=== PATIENT | female | born 1945 | race Caucasian/White ===

== ENCOUNTER 2017-08-05 13:06 | Outpatient (CLI) | payer MEDICARE, OTHER ==
--- NOTE | 2017-08-05 15:43 | MRI ---
MRI OF CERVICAL SPINE PERFORMED WITHOUT CONTRAST ENHANCEMENT: 08/05/17 HISTORY: Neck and arm pain. Image quality is degraded by fairly pronounced motion artifact. Vertebral bodies maintain normal height. There is disc narrowing at C5-6 and C6-7. C2-3: Unremarkable. C3-4: Some mild disc bulge. There are fact hypertrophic changes and some borderline bilateral foramin al narrowing. C4-5: No significant canal stenosis or any definite foraminal narrowing. C5-6: There is posterior osteophytic bar at this level with disc changes. This is associated with a m oderate degree of canal narrowing and bilateral foraminal stenosis which is moderate. C6-7: Similar changes are seen at this level with posterior osteophytic broad based bar causing a mod erate degree of canal stenosis. There is also mild to moderate bilateral foraminal narrowing. The moses nges are slightly less pronounced than the C5-6 level. C7-T1: Unremarkable. IMPRESSION: Moderate canal stenosis at the C5-6 and C6-7 levels. Associated foraminal narrowing is seen. POS: [facility]
--- NOTE | 2017-08-05 15:47 | MRI ---
MRI OF LUMBAR SPINE PERFORMED WITHOUT CONTRAST ENHANCEMENT: History: Back pain. Leg pain. FINDINGS: Vertebral bodies are normal in height. Generalized disc desiccation changes are seen. Vertebral body hemangioma of T11 is present. Areas of T2 hyperintensity involving the kidneys are most likely cysts. There is no significant periaortic adenopathy. T12-L1: No significant canal or foraminal stenosis. L1-2: Facet hypertrophic changes without significant canal or foraminal stenosis. L2-3: There is a disc bulge and central minimal protrusion which in conjunction with facet and ligame ntous hypertrophic changes cause a moderate degree of canal stenosis. There is mild foraminal narrowi ng. L3-4: Once again there is a fairly prominent disc bulge with central to slightly ------ central disc protrusion. There is a severe degree of canal narrowing with facet and ligamentous hypertrophic perez es. No significant foraminal narrowing. L4-5: Disc bulge as well as facet and ligamentous hypertrophic change contribute to a mild degree of canal stenosis. There is a some mild bilateral foraminal narrowing also present. L5-S1: No significant canal or foraminal narrowing at this level. IMPRESSION: Disc changes and facet and ligamentous hypertrophic changes at the L2-3 and L3-4 levels associated wi th marked stenosis as discussed above. Other findings also as noted above. POS: [facility]
== END 2017-08-05 13:07 | disposition home or self-care (01) ==
LOC: TBSIIMAG 13:06
PROVIDERS: ATTEND Neurological Surgery
DX: M54.2 Cervicalgia (principal); M48.062 Spinal stenosis, lumbar region with neurogenic claudication; M48.02 Spinal stenosis, cervical region
CPT/HCPCS: 72141; 72148

== ENCOUNTER 2017-08-24 06:59 | Day surgery (SDC) | payer MEDICARE, OTHER ==
[2017-08-21 14:30] VITALS: BMI 35.3
[2017-08-24 08:08] LABS: #Eosinphils 0.2 thou/uL (0.0-0.7); #Lymphocytes 1.3 thou/uL (1.20-3.40); #Monocytes 0.5 thou/uL (0.11-0.59); #Neutrophils 7.5 thou/uL (1.40-6.50); %Basophils 0.4 % (0.0-1.0); %Eosinophils 1.7 % (0.0-10.0); %Lymphocytes 13.9 % (21.0-51.0); %Monocytes 5.4 % (0.0-10.0); %Neutrophils 78.5 % (42.0-75.0); Hemoglobin 13.2 g/dL (12.0-16.0); Mean Corpuscular Hemoglobin 29.4 pg (27.0-31.0); Mean Corpuscular Volume 89.1 fl (81.0-99.0); Mean Platelet Volume 6.6 fL (7.4-10.4); Platelet Count 376 thou/uL (130-400); RBC Distribution Width 11.8 % (11.5-14.5); Red Blood Cell (RBC) Count 4.49 mill/uL (4.20-5.40); White Blood Cell (WBC) Count 9.6 thou/uL (4.8-10.8)
[2017-08-24] MEDS ORDERED: Levofloxacin 500 mg/D5W 100 ml Premix Bag ONE (08:13)
[2017-08-24] MEDS ORDERED: Clindamycin/D5W 900 mg/50 ml Premix Bag ONE (08:13)
[2017-08-24 08:34] LABS: Anion Gap 11 mmol/L (10-20); BUN (Urea Nitrogen) 14 mg/dL (9.8-20.1); Calc. Creatinine Clearance 105 mL/min (70-130); Calcium 9.8 mg/dL (7.8-10.44); Carbon Dioxide 29 mmol/L (23-31); Chloride 98 mmol/L (98-107); Estimated GFR-MDRD Greater than 90; Glucose 130 mg/dL (83-110); Potassium 3.9 mmol/L (3.5-5.1); Sodium 134 mmol/L (136-145)
[2017-08-24] MEDS ORDERED: Sodium Chloride 0.9% 10 ML ONE (13:18)
[2017-08-24] MEDS ORDERED: Fentanyl 100 MCG/2 ML VIAL ONE (13:44)
[2017-08-24] MEDS ORDERED: HYDROmorphone 0.5 MG/0.5 ML SYRINGE ONE ×2 (15:08→15:10)
[2017-08-24] MEDS ORDERED: Ondansetron HCl/PF 4 MG/2 ML Vial IVP PRN (15:17)
[2017-08-24] MEDS ORDERED: HYDROmorphone 2 MG/ML VIAL SLOW IVP PRN (15:17)
[2017-08-24] MEDS ORDERED: Promethazine HCl 25 MG/ML VIAL SLOW IVP PRN (15:17)
[2017-08-24] MEDS ORDERED: Promethazine HCl 25 MG/ML VIAL IM PRN ×2 (15:17→17:59)
[2017-08-24] MEDS ORDERED: Promethazine HCl 25 MG/ML VIAL ONE (15:19)
[2017-08-24] MEDS ORDERED: Fentanyl 250 MCG/5 ML VIAL ONE (15:20)
[2017-08-24] MEDS ORDERED: Sodium Chloride For Inhalation 0.9% 3 ML NEB ONE (15:43)
[2017-08-24] MEDS ORDERED: Albuterol Sulfate 1.25 MG/3 ML NEB ONE (15:44)
--- NOTE | 2017-08-24 16:05 | OP ---
DATE OF PROCEDURE: 08/24/2017 SURGEON: Felipe Aguilar M.D. BACK TENDER CYLINDER: Perez Mcneil PA-C PROCEDURES: Anterior cervical discectomy C5-C6 and C6-C7, interbody arthrodesis, intravertebral biom echanical device, local morselized autograft, demineralized bone matrix, anterior titanium instrument ation C5-C7. PROCEDURE IN DETAIL: The patient was brought to the operating room, intubated. He was positioned rivera pine in modest extension on a gel-filled donut. Incision was made in the right precervical area and dissecting medial to the sternocleidomastoid muscle, identified the anterior cervical spine and our l evel was confirmed by x-ray. We debrided anterior osteophytes, placed distraction from C5-C7 and usi ng the operating microscope and microdissection techniques, completely decompressed the intravertebra l disc exposing the dura from foramen to foramen. After complete decompression had been secured, the bony endplates were decorticated for purpose of arthrodesis and appropriately sized intravertebral b iomechanical PEEK device was brought into the field, filled with demineralized bone matrix, local mor selized autograft, and tapped into place securely at C5-C6 and C6-C7. Next, an anterior plate was br ought in the field and secured to C5, C6 and C7 using two 14 mm screws at each level. The wound was then extensively irrigated, immaculate hemostasis was secured. The wound was closed in anatomic laye rs over a drain.
[2017-08-24] MEDS ORDERED: Esmolol 100 MG/10 ML VIAL ONE (17:17)
[2017-08-24] MEDS ORDERED: Propofol 200 MG/20 ML VIAL ONE (17:17)
[2017-08-24] MEDS ORDERED: PHENYLEPHRINE-NS 100 MCG/ML 10 ML SYRINGE ONE (17:17)
[2017-08-24] MEDS ORDERED: Ondansetron HCl/PF 4 MG/2 ML Vial ONE (17:17)
[2017-08-24] MEDS ORDERED: ePHEDrine/0.9% NaCl/PF SYRINGE 50 mg/10 ml ONE (17:17)
[2017-08-24] MEDS ORDERED: Lidocaine 1% PF 5 ML VIAL ONE (17:17)
[2017-08-24] MEDS ORDERED: Morphine 4 MG/ML Carpuject SLOW IVP PRN (17:59)
[2017-08-24] MEDS ORDERED: tiZANidine HCl 4 MG TAB PO PRN (17:59)
[2017-08-24] MEDS ORDERED: Acetaminophen 650 MG Suppository PR PRN (17:59)
[2017-08-24] MEDS ORDERED: diphenhydrAMINE 25 MG CAP PO PRN (17:59)
[2017-08-24] MEDS ORDERED: Mag-Al 1200 mg/1200 mg/30 ML UDCUP PO PRN (17:59)
[2017-08-24] MEDS ORDERED: Acetaminophen 325 MG TAB PO PRN (17:59)
[2017-08-24] MEDS ORDERED: HYDROcodone/Acetaminophen 7.5/325 mg Tablet PO PRN ×2 (17:59)
[2017-08-24] MEDS ORDERED: Promethazine 25 MG TAB PO PRN (17:59)
[2017-08-24] MEDS ORDERED: diphenhydrAMINE 50 MG/ML VIAL IVP PRN (17:59)
[2017-08-24] MEDS ORDERED: Promethazine HCl 12.5 MG SUPP PR PRN (17:59)
[2017-08-24] MEDS ORDERED: Milk Of Magnesia 30 ML UDCUP PO PRN (17:59)
[2017-08-24] MEDS: Ondansetron HCl/PF 4 MG/2 ML Vial IVP PRN (18:59)
[2017-08-24] MEDS: Sodium Chloride 0.9% 1,000 ML IV SCH (20:30)
[2017-08-25] MEDS ORDERED: Levothyroxine Sodium 25 MCG TAB PO SCH (06:00)
[2017-08-25] MEDS: Ondansetron HCl/PF 4 MG/2 ML Vial IVP PRN (06:09)
[2017-08-25] MEDS ORDERED: metFORMIN 500 MG TAB PO SCH (08:00)
[2017-08-25 08:23] VITALS: BP 163/89; TEMP 98
[2017-08-25] MEDS: Sodium Chloride 0.9% 1,000 ML IV SCH (08:27)
[2017-08-25] MEDS ORDERED: Amlodipine 5 MG TAB PO SCH (09:00)
[2017-08-25] MEDS ORDERED: Potassium Citrate 10 MEQ TAB PO SCH (17:00)
[2017-08-25] MEDS ORDERED: Hydrochlorothiazide 25 MG TAB PO SCH (21:00)
[2017-08-25] MEDS ORDERED: Atorvastatin Calcium 40 MG TAB PO SCH (21:00)
--- NOTE | 2017-08-27 06:20 | HP ---
DATE OF H&P: 08/24/2017 HISTORY OF PRESENT ILLNESS: The patient is a 72-year-old female with past medical history of hypertension, hyperlipidemia, diabetes, hypothyroidism, who presented to the office for low back and neck pain. She has started aching sensation along the neck and lumbar spine. Her symptoms were increased with walking or standing. She denied any weakness, numbness, tingling, bowel or bladder issues. We updated her MRI which was notable for significant degenerative changes at C5-6 and C6-7. Therefore, C5-C6, C6-C7 ACDF was recommended by Dr. Aguilar. REVIEW OF SYSTEMS: Per HPI. PAST MEDICAL HISTORY: Diabetes, arthritis, hypertension, hypothyroidism. PAST SURGICAL HISTORY: Hysterectomy, bilateral knee replacement. FAMILY HISTORY: Noncontributory. SOCIAL HISTORY: The patient does not smoke, drink or use any drugs. PHYSICAL EXAMINATION: GENERAL: Sitting in the chair comfortably in no acute distress. HEENT: Normocephalic, atraumatic. ENT: OP clear. Normal voice. NECK: Nontender to palpation. Free active range of motion. CARDIOVASCULAR: Regular rate and rhythm. RESPIRATORY: The patient is breathing comfortably with symmetric chest expansion. MUSCULOSKELETAL: Good muscle tone in bilateral upper and lower extremities. NEUROLOGIC: No focal weakness. A and O x4. ASSESSMENT AND PLAN: C5-C6, C6-C7 anterior cervical discectomy and fusion. Dr. Aguilar has discussed risks, benefits, and alternatives. Patient understands and wishes to proceed. [facility] MED[facility] CENTERAlicia
--- NOTE | 2017-08-27 17:27 | EKG ---
Test Reason : PREOP Blood Pressure : / mmHG Vent. Rate : 068 BPM Atrial Rate : 068 BPM P-R Int : 206 ms QRS Dur : 102 ms QT Int : 400 ms P-R-T Axes : 004 031 048 degrees QTc Int : 425 ms Normal sinus rhythm Low voltage QRS Cannot rule out Anterior infarct (cited on or before 04-AUG-2006) Abnormal ECG When compared with ECG of 29-SEP-2006 09:35, No significant change was found Confirmed by DR. Uriel QUACH ([id number]) on 08/27/2017 5:27:10 PM Referred By: AAMIR Confirmed By:DR. Uriel QUACH
--- NOTE | 2017-08-28 08:48 | PRG ---
DATE OF SERVICE: 08/28/2017 Ms. Leon when I went by the first time was getting up and went to the bathroom. When she got back in bed she said she was having recurrent pain in the upper back. The patient's daughter says that Ms Hudson Babin had a lot of pain in the upper back last night and also burning. The patient's daughter tells me that she thinks that the pain got worse when she tried to take the st ool softener. The patient has no anterior chest pain. The blood pressure earlier was 132/96, but it was very high after she had some vomiting and retching. It was up to 200/95. Her pulse is 70, it is in sinus rhythm now, but she did have a brief episode of atrial fibrillation e arlier. The rate was controlled at that point. NECK: Neck veins are normal. LUNGS: The lungs are clear. CARDIAC: Normal S1, normal S2. ABDOMEN: Obese, nontender. EXTREMITIES: Warm, dry, no clubbing, cyanosis or edema. ASSESSMENT: 1. Postoperative status with continued pain, upper back. 2. Cardiac enzymes have been negative. 3. Diastolic heart failure, appears resolved. The patient is breathing comfortably now. 4. Symptoms to suggest esophageal reflux. 5. Hypertension was relatively well controlled until she started having the vomiting and retching. PLAN: 1. She is on carvedilol. 2. She is on losartan. 3. We will reduce diuretics to once a day. 4. Cannot use antiplatelet drugs in this patient with recent cervical spine surgery. 5. We will do a portable chest x-ray. 6. Neurosurgery saw the patient yesterday and we will ask them to see her again today to see if othe r imaging would be appropriate. I had a prolonged discussion today with the patient and the daughter in the room. Questions were ans wered. At this point, no other cardiac intervention is indicated. Invasive Cardiology would not be helpful at this point as cannot receive antiplatelet drugs and also the patient has not shown any moses nge in the troponin levels which have all been normal and no ischemic changes with her symptoms. The echocardiogram showed normal left ventricular systolic function and wall motion with some diastolic dysfunction. BNP did show some elevation initially compatible with diastolic heart failure. The patient is being monitored closely.
== END 2017-08-25 09:15 | disposition home or self-care (01) ==
LOC: SDC 06:59 → SURG A 16:45 → SDC 08-25 09:15
PROVIDERS: ATTEND Neurological Surgery
PROC: 0RG20A0 Fusion of 2 or more Cervical Vertebral Joints with Interbody Fusion Device, Anterior Approach, Anterior Column, Open Approach (ICD-10-PCS; principal; 2017-08-24)
DX: M54.12 Radiculopathy, cervical region (principal); M48.062 Spinal stenosis, lumbar region with neurogenic claudication; M47.16 Other spondylosis with myelopathy, lumbar region; I10 Essential (primary) hypertension; E11.9 Type 2 diabetes mellitus without complications; E03.9 Hypothyroidism, unspecified; E78.5 Hyperlipidemia, unspecified; M19.90 Unspecified osteoarthritis, unspecified site; Z88.0 Allergy status to penicillin; Z91.012 Allergy to eggs; Z87.891 Personal history of nicotine dependence
CPT/HCPCS: 20930; 20936; 22551; 22552; 22853 ×2; 76000; 80048; 85025; 93005; 96374; C1713 ×2; C1776; 36415; 93010; A4216; J1170; J1956; J2001; J2270; J2405; J2550; J2704; J3010; J3490; J7620

== ENCOUNTER 2017-08-26 06:13 | Inpatient (IN) | payer MEDICARE, OTHER ==
[2017-08-26] MEDS ORDERED: Dexamethasone 10 MG/ML VIAL ONE (06:46)
--- NOTE | 2017-08-26 08:11 | RAD ---
CERVICAL SPINE SERIES: History: Cervical pain status post-surgery on 08-24-17. FINDINGS: Patient has undergone an anterior cervical fusion extending from C5 to C7 with intervening disc impla nts. There is moderate soft tissue swelling anterior to this level and as high as the C2 vertebral adryan dy. This could be entirely post op related to the recent surgery. No malalignment of the fusion. IMPRESSION: Recent post-operative changes related to an anterior cervical fusion extending from C5 to C7. There i s moderate prevertebral soft tissue swelling which can be seen after surgery. This is slightly more p rominent than typically seen. It measures 2.4 cm at the level of the C5-6 and 1.5 cm in thickness at C2. POS: C
--- NOTE | 2017-08-26 08:59 | RAD ---
TWO VIEW CHEST: History: Shortness of breath. Post cervical spine surgery. Cough. FINDINGS: Heart is enlarged. There is mild vascular engorgement. No confluent infiltrate. I cannot exclude tiny effusions as both posterior gutters are slightly blunted. IMPRESSION: Cardiomegaly with mild vascular engorgement. No focal infiltrate. There may be tiny effusions present . POS: [facility]
[2017-08-26 09:33] LABS: #Eosinphils 0.1 thou/uL (0.0-0.7); #Lymphocytes 0.9 thou/uL (1.20-3.40); #Monocytes 0.8 thou/uL (0.11-0.59); #Neutrophils 12.7 thou/uL (1.40-6.50); %Eosinophils 0.3 % (0.0-10.0); %Lymphocytes 6.2 % (21.0-51.0); %Monocytes 5.7 % (0.0-10.0); %Neutrophils 87.8 % (42.0-75.0); Hemoglobin 12.3 g/dL (12.0-16.0); Mean Corpuscular HGB CONC 32.4 g/dL (32.0-36.0); Mean Corpuscular Volume 89.6 fl (81.0-99.0); Mean Platelet Volume 6.8 fL (7.4-10.4); Platelet Count 353 thou/uL (130-400); RBC Distribution Width 11.9 % (11.5-14.5); Red Blood Cell (RBC) Count 4.23 mill/uL (4.20-5.40); White Blood Cell (WBC) Count 14.5 thou/uL (4.8-10.8)
[2017-08-26 09:40] LABS: ALT (SGPT) 12 U/L (8-55); AST (SGOT) 12 U/L (5-34); Albumin 3.8 g/dL (3.4-4.8); Alkaline Phosphatase 84 U/L (40-150); Anion Gap 11 mmol/L (10-20); BUN (Urea Nitrogen) 12 mg/dL (9.8-20.1); Bilirubin, Total 0.5 mg/dL (0.2-1.2); Calc. Creatinine Clearance 0 mL/min (70-130); Calcium 9.7 mg/dL (7.8-10.44); Carbon Dioxide 30 mmol/L (23-31); Chloride 90 mmol/L (98-107); Estimated GFR-MDRD 89; Glucose 136 mg/dL (83-110); Potassium 3.5 mmol/L (3.5-5.1); Protein, Total 6.8 g/dL (6.0-8.3); Sodium 127 mmol/L (136-145)
[2017-08-26 09:45] LABS: CKMB 1.5 ng/mL (0-6.6); Troponin I Less than 0.010 ng/mL (< 0.028)
[2017-08-26] MEDS ORDERED: Nitroglycerin 2% Ointment 1 INCH/1 GM Packet ONE ×2 (10:32→11:12)
[2017-08-26] MEDS ORDERED: Ondansetron ODT 4 MG TAB PO PRN ×2 (11:24→14:04)
[2017-08-26] MEDS ORDERED: Milk Of Magnesia 30 ML UDCUP PO PRN (11:24)
[2017-08-26] MEDS ORDERED: Acetaminophen 325 MG TAB PO PRN (11:24)
[2017-08-26] MEDS ORDERED: Guaifenesin DM 100-10/5 ML UDCUP PO PRN (11:24)
[2017-08-26 13:07] VITALS: BMI 38.1
[2017-08-26 13:24] LABS: Troponin I Less than 0.010 ng/mL (< 0.028)
[2017-08-26] MEDS ORDERED: ONDANSETRON HCL PO PRN (13:32)
[2017-08-26] MEDS ORDERED: tiZANidine HCl 4 MG TAB PO PRN (13:32)
--- NOTE | 2017-08-26 14:11 | HP ---
PRIMARY CARE PHYSICIAN: Dr. Eusebio Atwood CHIEF COMPLAINT: Shortness of breath. HISTORY OF PRESENT ILLNESS: This is a 72-year-old female, Ms. Evie Leon, who presents to the emergency room with acute shortness of breath. She reports that her symptoms started around 3:00 a.m., she felt she could not catch her breath and felt like choking. She felt she was unable to get any air in. It was associated with nausea. She had 3 episodes of vomiting. She denies chest pain, palpitations, edema, fever, or chills. She had no other abdominal or urinary symptoms. Of note, she had surgery 2 days ago (anterior cervical fusion ) and reports getting about 1.5-2 liters of IV fluid. She has a remote history of CHF diagnosed about 35 years ago when she developed some edema. In the emergency room, she was found to be saturating at 88% on room air. Her labs were largely unremarkable apart from a BNP of 273.8. Troponin was obtained and trended and remained negative. Chest x-ray showed mild vascular congestion. Cervical spine x-ray showed no acute abnormalities, just residual postsurgical changes. She was then admitted for acute hypoxic respiratory failure likely secondary to acute congestive heart failure. PAST MEDICAL HISTORY: Hypertension, type 2 diabetes mellitus, hyperlipidemia, hypothyroidism, remote CHF history. PAST SURGICAL HISTORY: Anterior cervical fusion, appendectomy, hysterectomy, 2 knee replacements. FAMILY HISTORY: Her father and 3 brothers from [place]. Other family history is noncontributory. SOCIAL HISTORY: Does not drink alcohol, smoke cigarettes or use illicit drugs. ALLERGIES: EGGS, PENICILLIN. CODE STATUS: Full code. LABORATORY: As stated in HPI. IMAGING: Imaging as stated in HPI. REVIEW OF SYSTEMS: Twelve point review of systems conducted and negative except as stated in HPI. PHYSICAL EXAMINATION: GENERAL: Not in acute distress, lying comfortably in bed. Oxygen being delivered by nasal cannula. HEENT: Normocephalic, atraumatic. Not pale, anicteric. Moist mucosa. NECK: Supple. No JVD. Surgical scar in anterior neck. Dry, dressing clean. LUNGS: Mild bibasilar crackles. No wheezes or rales. Otherwise, normal breath sounds. CARDIOVASCULAR: S1 and S2, only with no murmurs, rubs or gallops. No edema, no JVD. ABDOMEN: Obese, bowel sounds positive, nontender, nondistended, no organomegaly. MUSCULOSKELETAL: Moves all extremities spontaneously. No skeletal abnormalities. SKIN: Warm, dry, well-perfused. PSYCHIATRIC: Alert and well oriented to person, place and time, has no focal deficits. ASSESSMENT AND PLAN: 1. Acute hypoxic respiratory failure. This is most likely from congestive heart failure exacerbation. She has a recent hospital admission where she received IV fluids and chest x- ray shows vascular congestion, as well as a mildly elevated BNP. We will admit to telemetry, start gentle diuresis, monitor ins and outs, daily weights and consult Cardiology. Also, adhere to a low salt diet and obtain an echocardiogram. 2. Type 2 diabetes mellitus. She takes metformin on an outpatient basis. We will restart the medication and place her on sliding scale insulin in addition to diabetic diet, fingerstick glucose before meals and at bedtime and hypoglycemia protocol. 3. Hypertension, relatively well controlled. We will continue home dose of amlodipine and hydrochlorothiazide. We will monitor blood pressure closely. 4. Hypothyroidism. The patient takes levothyroxine, which we will resume. We will also obtain a TSH. 5. Hyperlipidemia. We will continue atorvastatin. MTDD
[2017-08-26] MEDS: Furosemide 20 MG/2 ML VIAL SLOW IVP SCH ×2 (14:22→14:40)
[2017-08-26] MEDS: hydrALAZINE 20 MG/ML VIAL SLOW IVP PRN (14:32)
[2017-08-26] MEDS ORDERED: Heparin 5,000 UNITS/ML VIAL SC SCH (15:00)
[2017-08-26] MEDS ORDERED: Carvedilol 6.25 MG TAB PO SCH ×2 (15:45→17:00)
[2017-08-26 15:51] LABS: Troponin I Less than 0.010 ng/mL (< 0.028)
--- NOTE | 2017-08-26 16:37 | CON ---
DATE OF CONSULTATION: 08/26/2017 REASON FOR CONSULTATION: Congestive heart failure, atrial fibrillation. HISTORY OF PRESENT ILLNESS: Ms. Evie Leon is a 72-year-old woman who developed intractable pain related to her cervical spine. She underwent successful surgery of the cervical spine from the anter ior approach two days ago. She came to the hospital last night complaining of pain through her head and then through the entire body. She is also short of breath. She was found to be in congestive he art failure on examination and by x-ray. She has been given diuretics. She is no longer short of br eath and feels better. No chest pain. Patient's oxygen saturations were 88% and the BNP was elevated. No previous cardiac history. PAST MEDICAL HISTORY: 1. Hypertension. 2. Type 2 diabetes. 3. Hyperlipidemia. 4. Hypothyroidism. 5. Remote history of? congestive heart failure many years ago. PAST SURGICAL HISTORY: Anterior cervical fusion, appendectomy, hysterectomy. 2 knee replacements. FAMILY HISTORY: Father and brothers had from coronary artery disease. SOCIAL HISTORY: No alcohol. No smoking, no drugs. ALLERGIES: EGGS and PENICILLIN. CODE STATUS: FULL. Laboratory as will be outlined below. IMAGING: Revealed pulmonary vascular congestion and cardiomegaly. REVIEW OF SYSTEMS: Constitutional: No significant weight gain or loss. Vision: No changes. Heari ng: No changes. Pulmonary: No cough or wheezing. Gastrointestinal: No nausea, vomiting, diarrhea . Skin: No rashes. Neurologic: No unilateral weakness or numbness. Psychiatric: No unusual depr ession or anxiety. Hematologic: No unusual bruising. Genitourinary: No burning with urination. M usculoskeletal: No unusual joint pains. She does, however, have chronic knee pain and also pain for the low back. She is planning on having low back surgery as well. PHYSICAL EXAMINATION: GENERAL: A pleasant patient, 5 feet tall, 195 pounds, BMI 38. VITAL SIGNS: Blood pressure was 190/94 and then subsequently 213/102, pulse is 90 to 100. EYES: Sclerae nonicteric. MOUTH: Mucous membranes moist. NECK: Supple, no lymphadenopathy. LUNGS: Somewhat distant. CARDIAC: I do not hear murmur, rub or gallop. No S3. ABDOMEN: Obese, nontender, no hepatosplenomegaly. EXTREMITIES: Mild to moderate edema. SKIN: Warm and dry. PSYCHIATRIC: Mood and affect normal. NEUROLOGIC: Grossly normal. LABORATORY AND X-RAY FINDINGS: EKG initially showed sinus rhythm and subsequently revealed atrial fi brillation with a rate of 120 to 130. PERTINENT LABORATORIES: BNP 273. Troponin levels were negative. Sodium 127. The patient has just received diuretic and is beginning to diurese, feels better. ASSESSMENT: 1. Recent cervical spine surgery. 2. Congestive heart failure, likely acute on chronic. At this point, it is not clear whether it is systolic or diastolic, may be systolic or diastolic. It is difficult to tell clinically. Echo is pe nding. 3. Hyponatremia. 4. Diabetes. 5. Morbid obesity. 6. Recent surgery. 7. Atrial fibrillation. 8. Hypertension. PLAN: 1. Add carvedilol. 2. Continue diuretics. 3. We will add TAWANDA inhibitors. 4. Further care dictated by hospital course and cannot fully anticoagulate at this point.
[2017-08-26] MEDS: metFORMIN 500 MG TAB PO SCH (16:51)
[2017-08-26] MEDS: Potassium Chloride 20 MEQ TAB PO SCH ×2 (16:54→17:33)
[2017-08-26] MEDS ORDERED: Furosemide 20 MG/2 ML VIAL SLOW IVP SCH (20:00)
[2017-08-26] MEDS: HYDROcodone/Acetaminophen 5/325 mg Tablet PO PRN (20:35)
[2017-08-26] MEDS: Potassium Citrate 10 MEQ TAB PO SCH (20:35)
[2017-08-26] MEDS: Atorvastatin Calcium 40 MG TAB PO SCH (20:37)
[2017-08-26] MEDS: Docusate 100 MG CAP PO SCH (20:37)
[2017-08-26] MEDS: Famotidine 20 MG TAB PO SCH (20:43)
[2017-08-26] MEDS: tiZANidine HCl 4 MG TAB PO PRN (20:43)
[2017-08-26] MEDS: cloNIDine 0.1 MG TAB PO PRN (20:56)
[2017-08-26] MEDS ORDERED: Hydrochlorothiazide 25 MG TAB PO SCH ×2 (21:00)
[2017-08-26] MEDS ORDERED: Atorvastatin Calcium 40 MG TAB PO SCH (21:00)
[2017-08-26] MEDS ORDERED: Potassium Citrate 10 MEQ TAB PO SCH (21:00)
[2017-08-26] MEDS ORDERED: Non-Formulary Item 1 EACH (Metformin Hcl [Metformin Hcl] 1 TAB) PO SCH (21:00)
[2017-08-27] MEDS: HYDROcodone/Acetaminophen 5/325 mg Tablet PO PRN ×2 (04:39→10:46)
[2017-08-27] MEDS: tiZANidine HCl 4 MG TAB PO PRN ×2 (04:39→11:14)
[2017-08-27 05:14] LABS: #Monocytes 0.9 thou/uL (0.11-0.59); #Neutrophils 9.3 thou/uL (1.40-6.50); %Basophils 0.1 % (0.0-1.0); %Eosinophils 0.2 % (0.0-10.0); %Lymphocytes 9.2 % (21.0-51.0); %Monocytes 7.7 % (0.0-10.0); %Neutrophils 82.8 % (42.0-75.0); Hemoglobin 11.7 g/dL (12.0-16.0); Mean Corpuscular HGB CONC 33.4 g/dL (32.0-36.0); Mean Corpuscular Hemoglobin 29.7 pg (27.0-31.0); Mean Corpuscular Volume 89.1 fl (81.0-99.0); Mean Platelet Volume 6.6 fL (7.4-10.4); Platelet Count 347 thou/uL (130-400); RBC Distribution Width 11.8 % (11.5-14.5); Red Blood Cell (RBC) Count 3.93 mill/uL (4.20-5.40); White Blood Cell (WBC) Count 11.2 thou/uL (4.8-10.8)
[2017-08-27 05:27] LABS: Anion Gap 12 mmol/L (10-20); BUN (Urea Nitrogen) 13 mg/dL (9.8-20.1); Calc. Creatinine Clearance 108 mL/min (70-130); Calcium 9.9 mg/dL (7.8-10.44); Carbon Dioxide 32 mmol/L (23-31); Chloride 93 mmol/L (98-107); Estimated GFR-MDRD 89; Glucose 143 mg/dL (83-110); Sodium 133 mmol/L (136-145)
[2017-08-27] MEDS: Furosemide 20 MG/2 ML VIAL SLOW IVP SCH ×2 (06:56→14:23)
[2017-08-27] MEDS ORDERED: Carvedilol 6.25 MG TAB PO SCH (08:00)
[2017-08-27] MEDS ORDERED: Levothyroxine Sodium 25 MCG TAB PO SCH (09:00)
[2017-08-27] MEDS ORDERED: Amlodipine 5 MG TAB PO SCH (09:00)
--- NOTE | 2017-08-27 09:24 | CON ---
DATE OF CONSULTATION: 08/27/2017 ATTENDING PHYSICIAN: Dr. Felipe Aguilar HISTORY OF PRESENT ILLNESS: The patient is a 72-year-old female status post 2-level ACDF C5-C6, C6-C 7 on 08/24/2017 who returned to the emergency department last night for dysphagia and shortness of br eath. Plain x-ray of the cervical spine shows postsurgical hardware in place. There is a slight swe lling around the postsurgical site. She was also found to have acute CHF exacerbation. She was 88% on room air when seen initially in the emergency department, had elevated BNP at 273. Chest x-ray sh owed mild pulmonary vascular congestion. She was admitted to the medicine service for further manage ment of these issues. We are also seeing the patient considering her dysphagia and recent surgery. I am seeing the patient at the bedside. She is awake and alert, in no acute distress. She is able t o drink water without any difficulty and eat a soft diet. She reports she is feeling much better aft er receiving some steroids in the emergency department. She has 5/5 strength throughout. No focal w eakness. Her incision site is clean, dry, intact and soft. ASSESSMENT AND PLAN: The patient appears to have developed some post-surgical dysphagia following he r recent ACDF. She is improving with some steroids and we will put her on a Medrol Dosepak taper. I anticipate this swelling will continue to improve with time. Regarding her remainder of her medical issues we will defer to the primary medical team. Please reach out to Neurosurgery Service for demian tional questions or concerns.
[2017-08-27] MEDS: Famotidine 20 MG TAB PO SCH ×2 (09:28→21:52)
[2017-08-27] MEDS: metFORMIN 500 MG TAB PO SCH ×2 (09:28→16:39)
[2017-08-27] MEDS: Levothyroxine Sodium 25 MCG TAB PO SCH (09:29)
[2017-08-27] MEDS: Docusate 100 MG CAP PO SCH ×2 (09:36→21:51)
[2017-08-27] MEDS: Carvedilol 6.25 MG TAB PO SCH ×3 (09:38→16:39)
--- NOTE | 2017-08-27 10:15 | PDOC.PN ---
- Subjective Encounter Start Date: 08/27/17 Encounter Start Time: 10:23 Subjective: no new complaints. Pain better controlled -: No acute events overnight. - Objective Resuscitation Status: Resuscitation Status FULL:Full Resuscitation MAR Reviewed: Yes Vital Signs & Weight: Vital Signs (12 hours) Temp Pulse Resp BP BP Pulse Ox 08/27/17 09:28 58 L 08/27/17 07:23 97.8 F 58 L 18 159/87 H 96 08/27/17 04:00 61 18 163/84 H 98 08/26/17 23:19 67 18 147/79 H Weight Weight 6.91 oz I&O: 08/26/17 08/27/17 08/28/17 06:59 06:59 06:59 Intake Total 1410 Output Total 800 Balance 610 Result Diagrams: 08/27/17 04:43 08/27/17 04:43 Phys Exam - Physical Examination Constitutional: NAD HEENT: PERRLA, moist MMs Neck: no JVD, supple post surgical scar. Clean and dry Respiratory: no wheezing Vesicular breath sounds w bibasilar crackles, mild Cardiovascular: RRR, no significant murmur, no rub Gastrointestinal: soft, non-tender, no distention, positive bowel sounds Musculoskeletal: no edema, pulses present Neurological: non-focal, normal sensation Psychiatric: normal affect, A&O x 3 Skin: no rash, normal turgor Dx/Plan (1) Acute respiratory failure with hypoxia Code(s): J96.01 - ACUTE RESPIRATORY FAILURE WITH HYPOXIA Status: Acute Comment: Improving. Been weaned off O2. Likely a comnination of post surgical dysphagia and mild acute CHF. Has been started on diuretics- diuresing well and oral steroids for dysphagia. (2) Acute congestive heart failure Code(s): I50.9 - HEART FAILURE, UNSPECIFIED Status: Acute Qualifiers: Heart failure type: diastolic Qualified Code(s): I50.31 - Acute diastolic ( congestive) heart failure Comment: Has a remote h/o CHF. EF 50-55%. Continue diuretics, Coreg (3) Dysphagia Code(s): R13.10 - DYSPHAGIA, UNSPECIFIED Status: Acute Qualifiers: Dysphagia type: oral phase Qualified Code(s): R13.11 - Dysphagia, oral phase Comment: post surgical. Improving with pain control and steroids. (4) HLD (hyperlipidemia) Code(s): E78.5 - HYPERLIPIDEMIA, UNSPECIFIED Status: Acute Qualifiers: Hyperlipidemia type: unspecified Qualified Code(s): E78.5 - Hyperlipidemia , unspecified Comment: Continue Statins (5) HTN (hypertension) Code(s): I10 - ESSENTIAL (PRIMARY) HYPERTENSION Status: Acute Qualifiers: Hypertension type: essential hypertension Qualified Code(s): I10 - Essential (primary) hypertension Comment: Achieving better control. Erich lcontinue Hydrochlorothiazide, amlodipine , coreg. Clonidine and hydralazine PRN. (6) Hypothyroidism Code(s): E03.9 - HYPOTHYROIDISM, UNSPECIFIED Status: Acute Qualifiers: Hypothyroidism type: unspecified Qualified Code(s): E03.9 - Hypothyroidism , unspecified Comment: Continue Levothyroxine. Obtain TSH (7) DM2 (diabetes mellitus, type 2) Status: Acute Qualifiers: Diabetes mellitus complication status: without complication Diabetes mellitus correction insulin use: without jointer submarine cable use Qualified Code(s): E11.9 - Type 2 diabetes mellitus without complications Comment: Well controlled. (8) Paroxysmal atrial fibrillation Code(s): I48.0 - PAROXYSMAL ATRIAL FIBRILLATION Status: Acute Comment: Rate controlled. No antiplatelets or AC 2/2 recent cervical fusion for 2 weeks ( surgery date 08/24/17). - Plan * .
[2017-08-27] MEDS ORDERED: Dextrose 50% Abboject 50 ML SYRINGE SLOW IVP PRN (10:20)
[2017-08-27] MEDS ORDERED: Dextrose 5% in Water 1,000 ML IV PRN (10:20)
[2017-08-27] MEDS: methylPREDNISolone 4 mg Tablet PO SCH ×3 (11:14→21:13)
[2017-08-27] MEDS ORDERED: Losartan 25 MG TAB PO SCH ×2 (13:30→14:00)
[2017-08-27] MEDS ORDERED: Nitroglycerin 0.4 MG TAB (25 Tab Bottle) SL PRN (13:40)
[2017-08-27] MEDS ORDERED: Morphine 5 MG/ML SYRINGE SLOW IVP PRN (14:15)
--- NOTE | 2017-08-27 15:02 | EKG ---
Test Reason : Blood Pressure : / mmHG Vent. Rate : 078 BPM Atrial Rate : 078 BPM P-R Int : 200 ms QRS Dur : 092 ms QT Int : 390 ms P-R-T Axes : 002 015 025 degrees QTc Int : 444 ms Sinus rhythm with occasional Premature ventricular complexes Low voltage QRS Cannot rule out Inferior infarct , age undetermined Cannot rule out Anterior infarct , age undetermined Abnormal ECG Confirmed by DR. Uriel QUACH ([id number]) on 08/27/2017 3:01:53 PM Referred By: GINO Confirmed By:DR. Uriel QUACH
[2017-08-27 15:04] LABS: Troponin I Less than 0.010 ng/mL (< 0.028)
[2017-08-27] MEDS ORDERED: Zolpidem Tartrate 5 MG TAB PO PRN (16:01)
[2017-08-27] MEDS ORDERED: diphenhydrAMINE 50 MG/ML VIAL IVP PRN (16:01)
[2017-08-27] MEDS ORDERED: Naloxone HCl 0.4 mg/ml Vial IV PRN (16:01)
[2017-08-27] MEDS ORDERED: Promethazine HCl 25 MG/ML VIAL IM PRN (16:01)
[2017-08-27] MEDS ORDERED: Fentanyl 5000 MCG/250 ML CADD IVPB PRN (16:01)
[2017-08-27] MEDS ORDERED: diphenhydrAMINE 50 MG/ML VIAL IM PRN (16:01)
[2017-08-27] MEDS ORDERED: diphenhydrAMINE 25 MG CAP PO PRN (16:01)
[2017-08-27] MEDS ORDERED: Communication Order-Pharmacy FS SCH (16:15)
[2017-08-27] MEDS: fentaNYL Citrate/PF 2,000 MCG in Sodium Chloride 0.9% 60 ML IV PRN (16:45)
--- NOTE | 2017-08-27 19:28 | PRG ---
DATE OF SERVICE: 08/27/2017 SUBJECTIVE: Ms. Leon has been having quite a bit of upper back pain today, some of which radiated around to the front part of her chest. 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 She is not short of breath. Several cardiac enzymes were drawn and they are all negative with normal troponin levels. She has also been started on intravenous methylprednisolone. The patient is maintaining sinus rhythm today. PHYSICAL EXAMINATION: VITAL SIGNS: Her blood pressure has been variable. The most recent is still high at 169/81, pulse 6 8; before that 150/74. The blood pressure medicines are being increased. LUNGS: Clear. CARDIAC: Normal S1 and S2. ABDOMEN: Soft, nontender. EXTREMITIES: There is no edema. Echocardiogram showed normal left ventricular systolic function with evidence of diastolic dysfunctio n. EKGs during the episodes of pain did not show any ischemic change. ASSESSMENT: 1. Diastolic congestive heart failure, improved. 2. Recent cervical spine surgery. 3. Some postsurgical dysphagia, seen by the Neurosurgery Service and Medrol has been started. 4. Hypertension, being treated. 5. Atrial fibrillation, no recurrence. PLAN: I had a long discussion with the family in the room and some over the phone that the patient c annot be anticoagulated. I think that the pain is unlikely to be of cardiac origin, but certainly ca nnot use some of these medicines we frequently will use if there is any suspicion of anginal type zoila st pain. We discussed with Dr. Aguilar and he prefers no antiplatelet drugs for 2 weeks postoperati vely if at all possible, and anticoagulation is also to be avoided. Certainly no cardiac interventio n is feasible without causing severe risk to the surgical site of the cervical spine surgery. The nikky zachery will be reevaluated tomorrow. She has also been given a dose of IV pantoprazole in case any of her chest pain is esophageal reflux.
[2017-08-27] MEDS: Ondansetron HCl/PF 4 MG/2 ML Vial IVP PRN (19:43)
[2017-08-27] MEDS: Potassium Citrate 10 MEQ TAB PO SCH (21:13)
[2017-08-27] MEDS: Atorvastatin Calcium 40 MG TAB PO SCH (21:13)
[2017-08-27] MEDS: Pantoprazole 40 MG VIAL IVP SCH (21:13)
[2017-08-27] MEDS ORDERED: Docusate Sodium 100 MG/10 ML UDCUP PO SCH (21:15)
[2017-08-28] MEDS: Ondansetron HCl/PF 4 MG/2 ML Vial IVP PRN ×2 (02:36→08:30)
[2017-08-28 04:58] LABS: #Basophils 0.1 thou/uL (0.0-0.2); #Lymphocytes 0.6 thou/uL (1.20-3.40); #Monocytes 0.5 thou/uL (0.11-0.59); #Neutrophils 11.5 thou/uL (1.40-6.50); %Basophils 0.8 % (0.0-1.0); %Eosinophils 0.1 % (0.0-10.0); %Lymphocytes 4.4 % (21.0-51.0); %Monocytes 3.8 % (0.0-10.0); %Neutrophils 90.9 % (42.0-75.0); Hemoglobin 12.8 g/dL (12.0-16.0); Mean Corpuscular HGB CONC 32.7 g/dL (32.0-36.0); Mean Corpuscular Hemoglobin 29.3 pg (27.0-31.0); Mean Corpuscular Volume 89.8 fl (81.0-99.0); Mean Platelet Volume 6.7 fL (7.4-10.4); Platelet Count 402 thou/uL (130-400); RBC Distribution Width 11.6 % (11.5-14.5); Red Blood Cell (RBC) Count 4.37 mill/uL (4.20-5.40); White Blood Cell (WBC) Count 12.7 thou/uL (4.8-10.8)
[2017-08-28 05:08] LABS: Anion Gap 13 mmol/L (10-20); BUN (Urea Nitrogen) 19 mg/dL (9.8-20.1); Calc. Creatinine Clearance 0 mL/min (70-130); Calcium 10.1 mg/dL (7.8-10.44); Carbon Dioxide 32 mmol/L (23-31); Chloride 89 mmol/L (98-107); Estimated GFR-MDRD 86; Glucose 157 mg/dL (83-110); Potassium 4.4 mmol/L (3.5-5.1); Sodium 130 mmol/L (136-145)
[2017-08-28] MEDS: Furosemide 20 MG/2 ML VIAL SLOW IVP SCH (06:34)
[2017-08-28] MEDS ORDERED: methylPREDNISolone 4 mg Tablet PO SCH ×2 (08:00→21:00)
[2017-08-28] MEDS: Levothyroxine Sodium 25 MCG TAB PO SCH (08:39)
[2017-08-28] MEDS: Losartan 25 MG TAB PO SCH (08:39)
[2017-08-28] MEDS: Carvedilol 6.25 MG TAB PO SCH ×2 (08:39→17:51)
[2017-08-28] MEDS: Amlodipine 5 MG TAB PO SCH (08:40)
[2017-08-28] MEDS: metFORMIN 500 MG TAB PO SCH ×2 (08:40→17:51)
[2017-08-28] MEDS: Pantoprazole 40 MG VIAL IVP SCH ×2 (08:57→20:48)
[2017-08-28] MEDS: Docusate Sodium 100 MG/10 ML UDCUP PO SCH ×2 (08:57→20:45)
[2017-08-28] MEDS ORDERED: Acetaminophen 500 MG TAB PO SCH (09:00)
[2017-08-28] MEDS ORDERED: Amlodipine 5 MG TAB PO SCH (09:00)
--- NOTE | 2017-08-28 09:19 | RAD ---
RADIOGRAPH CHEST 1 VIEW: HISTORY: 72-year-old female with congestive heart failure. FINDINGS: There is cardiomegaly. The thoracic aorta is tortuous and ectatic. There is no evidence of air space density, pulmonary edema, or pneumothorax. The lateral costophrenic angles are sharp. IMPRESSION: 1. No acute pulmonary findings. 2. Cardiomegaly without congestive heart failure. 3. Ectasia of thoracic aorta. jn [] POS: [facility]
[2017-08-28] MEDS: Ketorolac Tromethamine 30 MG/ML VIAL IVP SCH ×3 (10:00→20:46)
--- NOTE | 2017-08-28 10:13 | PDOC.PN ---
- Subjective Encounter Start Date: 08/28/17 Encounter Start Time: 10:12 Subjective: Patient still c/o dysphagia/odynophagia. Pain management consulted -: No acute events overnight. - Objective MAR Reviewed: Yes Vital Signs & Weight: Vital Signs (12 hours) Temp Pulse Resp BP Pulse Ox 08/28/17 08:40 70 08/28/17 07:51 97.4 F L 70 16 200/95 H 93 L 08/28/17 04:12 97.7 F 83 16 132/96 H 94 L 08/27/17 23:35 75 16 172/91 H 95 Weight Weight 195 lb I&O: 08/27/17 08/28/17 08/29/17 06:59 06:59 06:59 Intake Total 240 Output Total 200 Balance 40 Result Diagrams: 08/28/17 04:09 08/28/17 04:09 Additional Labs: Accuchecks 08/27/17 08/27/17 22:47 16:48 POC Glucose 169 H 237 H Phys Exam - Physical Examination Constitutional: NAD HEENT: PERRLA, moist MMs, sclera anicteric, oral pharynx no lesions Neck: no JVD, supple, full ROM Respiratory: no wheezing, no rales, no rhonchi, clear to auscultation bilateral Cardiovascular: RRR, no significant murmur, no rub Gastrointestinal: soft, non-tender, no distention, positive bowel sounds Musculoskeletal: no edema, pulses present Neurological: non-focal, moves all 4 limbs Psychiatric: normal affect, A&O x 3 Skin: no rash, normal turgor Dx/Plan (1) Dysphagia Code(s): R13.10 - DYSPHAGIA, UNSPECIFIED Status: Acute Qualifiers: Dysphagia type: oral phase Qualified Code(s): R13.11 - Dysphagia, oral phase Comment: post surgical. Surgical service started on steroids. Anesthesia consulted for CONFIGURATION MANAGEMENT MANAGER pump. (2) Acute respiratory failure with hypoxia Code(s): J96.01 - ACUTE RESPIRATORY FAILURE WITH HYPOXIA Status: Acute Comment: Stable. Being weaned off O2. Likely 2/2 post surgical dysphagia and mild acute CHF. Will continue diuretics- diuresing well and oral steroids for dysphagia. Cardiology on board. Will follow recs. (3) Acute congestive heart failure Code(s): I50.9 - HEART FAILURE, UNSPECIFIED Status: Acute Qualifiers: Heart failure type: diastolic Qualified Code(s): I50.31 - Acute diastolic ( congestive) heart failure Comment: Has a remote h/o CHF. EF 50-55% done this admission. Continue diuretics , Coreg (4) HLD (hyperlipidemia) Code(s): E78.5 - HYPERLIPIDEMIA, UNSPECIFIED Status: Acute Qualifiers: Hyperlipidemia type: unspecified Qualified Code(s): E78.5 - Hyperlipidemia , unspecified Comment: Continue Statins (5) HTN (hypertension) Code(s): I10 - ESSENTIAL (PRIMARY) HYPERTENSION Status: Acute Qualifiers: Hypertension type: essential hypertension Qualified Code(s): I10 - Essential (primary) hypertension Comment: Continue Hydrochlorothiazide, amlodipine, coreg. Clonidine and hydralazine PRN. (6) Hypothyroidism Code(s): E03.9 - HYPOTHYROIDISM, UNSPECIFIED Status: Acute Qualifiers: Hypothyroidism type: unspecified Qualified Code(s): E03.9 - Hypothyroidism , unspecified Comment: Continue Levothyroxine. (7) DM2 (diabetes mellitus, type 2) Status: Acute Qualifiers: Diabetes mellitus complication status: without complication Diabetes mellitus ferry terminal supervisor insulin use: without ferry terminal supervisor use Qualified Code(s): E11.9 - Type 2 diabetes mellitus without complications Comment: Well controlled. (8) Paroxysmal atrial fibrillation Code(s): I48.0 - PAROXYSMAL ATRIAL FIBRILLATION Status: Acute Comment: Rate controlled. No antiplatelets or AC 2/2 recent cervical fusion for 2 weeks ( surgery date 08/24/17). - Plan cont current plan of care, plan discussed w/ family, PT/OT Will likely need placement/rehab -: Pain control challenging for this patient- anesthesia on board. * .
[2017-08-28] MEDS ORDERED: Scopolamine 1.5 mg/72 hour Patch TOP SCH (10:45)
[2017-08-28] MEDS: Acetaminophen 1,000 MG in Premix Bag 1 BAG IVPB SCH ×3 (11:14→20:44)
[2017-08-28] MEDS ORDERED: ISOVUE-370 76%-LOCM 1 ML ONE (13:40)
--- NOTE | 2017-08-28 14:28 | CT ---
CT ANGIOGRAM CHEST AND ABDOMEN AORTIC DISSECTION PROTOCOL: Date: 08/28/17 HISTORY: Severe back pain radiating into the chest. COMPARISON: Chest radiograph from same date. FINDINGS: There is some soft tissue thickening of the right neck, likely from recent surgery, with some postsur gical edema. No aneurysmal dilatation of the aorta. No dissection. Mild tortuosity. Mild vascular gumaro cifications. Pulmonary trunk size mildly enlarged, as well as the right and left main pulmonary artery suggesting chronic pulmonary arterial hypertension. Evidence of prior granulomatous disease with calcified hilar and mediastinal lymph nodes. Increase in pericardial fat. No pneumothorax. No large effusion. Mild atelectasis in the lung bases. Liver and gallbladder are unremarkable. Pancreas is unremarkable. Mild hypertrophy of the left adrena l gland. No dilated loops of bowel in the upper abdomen. Paraspinal musculature is normal. Normal proximal sma ll bowel rotation. There is a vertebral hemangioma at T11 with large posterior disc osteophyte complex at T10-T11 narrow ing the spinal canal to approximately 6.0 mm. Moderate degenerative disease within the spinous proce sses of the lumbar spine. No acute thoracic spine compression fracture. The great vessels are patent. The celiac trunk, as well as superior mesenteric artery and inferior me senteric arteries are all patent. There is a 1.0 cm hypodensity of the interpolar left kidney measuring 20 Hounsfield units, upper limi ts of normal for a cyst. IMPRESSION: 1. No evidence of aortic dissection or aneurysm formation. 2. Patent great vessels and solid organ arteries. 3. 1.0 cm hypodensity of the interpolar left kidney measuring 20 Hounsfield units, upper limits of n ormal for a cyst. Follow-up ultrasound in 6 months recommended to evaluate for change and internal co ntents. 4. Mild dilatation of the pulmonary trunk, and right and left main pulmonary arteries, suggesting ch ronic pulmonary arterial hypertension. 5. Evidence for granulomatous disease with multiple calcified mediastinal lymph nodes. 6. Soft tissue thickening over the great neck, likely from patient's recent spine surgery. 7. T11 hemangioma with T10/T11 posterior disc osteophyte complex causing mild narrowing of the spina l canal to approximately 6.0 mm. No compression fracture. POS: [facility]
--- NOTE | 2017-08-28 17:56 | ADD-PRG ---
ADDENDUM: DATE OF SERVICE: 08/28/2017 Ms. Leon feeling somewhat better. The CT of the thoracic aorta did not reveal any evidence of prob radha with the thoracic aorta. There is no dissection.
[2017-08-28] MEDS: Atorvastatin Calcium 40 MG TAB PO SCH (21:16)
[2017-08-29] MEDS: Ketorolac Tromethamine 30 MG/ML VIAL IVP SCH ×4 (03:03→20:49)
[2017-08-29] MEDS: Acetaminophen 1,000 MG in Premix Bag 1 BAG IVPB SCH ×2 (03:04→10:29)
[2017-08-29] MEDS: fentaNYL Citrate/PF 2,000 MCG in Sodium Chloride 0.9% 60 ML IV PRN (03:23)
[2017-08-29 05:37] LABS: #Eosinphils 0.1 thou/uL (0.0-0.7); #Lymphocytes 1.4 thou/uL (1.20-3.40); #Monocytes 0.6 thou/uL (0.11-0.59); #Neutrophils 7.4 thou/uL (1.40-6.50); %Basophils 0.3 % (0.0-1.0); %Eosinophils 1.4 % (0.0-10.0); %Monocytes 6.3 % (0.0-10.0); %Neutrophils 77.1 % (42.0-75.0); Hemoglobin 12.2 g/dL (12.0-16.0); Mean Corpuscular HGB CONC 32.9 g/dL (32.0-36.0); Mean Corpuscular Hemoglobin 29.5 pg (27.0-31.0); Mean Corpuscular Volume 89.4 fl (81.0-99.0); Mean Platelet Volume 6.5 fL (7.4-10.4); Platelet Count 367 thou/uL (130-400); RBC Distribution Width 11.5 % (11.5-14.5); Red Blood Cell (RBC) Count 4.14 mill/uL (4.20-5.40); White Blood Cell (WBC) Count 9.6 thou/uL (4.8-10.8)
[2017-08-29 05:47] LABS: Anion Gap 14 mmol/L (10-20); BUN (Urea Nitrogen) 29 mg/dL (9.8-20.1); Calc. Creatinine Clearance 75 mL/min (70-130); Calcium 9.5 mg/dL (7.8-10.44); Carbon Dioxide 32 mmol/L (23-31); Chloride 86 mmol/L (98-107); Estimated GFR-MDRD 58; Glucose 105 mg/dL (83-110); Potassium 3.9 mmol/L (3.5-5.1); Sodium 128 mmol/L (136-145)
[2017-08-29] MEDS ORDERED: methylPREDNISolone 4 mg Tablet PO SCH (08:00)
[2017-08-29] MEDS: Furosemide 20 MG/2 ML VIAL SLOW IVP SCH (08:49)
[2017-08-29] MEDS: Losartan 25 MG TAB PO SCH (08:51)
[2017-08-29] MEDS: Levothyroxine Sodium 25 MCG TAB PO SCH (08:52)
[2017-08-29] MEDS: metFORMIN 500 MG TAB PO SCH ×2 (08:52→16:56)
[2017-08-29] MEDS: Acetaminophen 500 MG TAB PO SCH ×3 (08:53→20:48)
[2017-08-29] MEDS: Carvedilol 6.25 MG TAB PO SCH (08:54)
[2017-08-29] MEDS: Amlodipine 5 MG TAB PO SCH (08:54)
[2017-08-29] MEDS: Docusate Sodium 100 MG/10 ML UDCUP PO SCH ×3 (09:23→20:51)
[2017-08-29] MEDS: Pantoprazole 40 MG VIAL IVP SCH ×2 (09:23→20:55)
--- NOTE | 2017-08-29 10:38 | PDOC.PN ---
- Subjective Encounter Start Date: 08/29/17 Encounter Start Time: 10:36 Subjective: No new complaints. Still has intermittent pain- sometimes generalized -: No acute events overnight- CT dissection negative. - Objective MAR Reviewed: Yes Vital Signs & Weight: Vital Signs (12 hours) Temp Pulse Resp BP BP Pulse Ox 08/29/17 08:54 77 183/83 H 08/29/17 08:38 97.8 F 77 18 183/83 H 96 08/29/17 07:17 95 08/29/17 05:44 97 08/29/17 04:00 97.9 F 68 16 179/86 H 97 Weight Weight 196 lb 6.4 oz I&O: 08/28/17 08/29/17 08/30/17 06:59 06:59 07:59 Intake Total 240 440 Output Total 200 Balance 40 440 Result Diagrams: 08/29/17 05:17 08/29/17 05:17 Additional Labs: Accuchecks 08/29/17 08/28/17 08/28/17 06:24 20:14 11:37 POC Glucose 118 H 143 H 151 H Phys Exam - Physical Examination Constitutional: NAD HEENT: PERRLA, moist MMs, sclera anicteric Neck: no JVD, supple, full ROM Respiratory: no wheezing, no rales, no rhonchi, clear to auscultation bilateral Cardiovascular: no significant murmur, no rub Gastrointestinal: soft, non-tender, no distention, positive bowel sounds Musculoskeletal: no edema, pulses present Neurological: non-focal, moves all 4 limbs Psychiatric: normal affect, A&O x 3 Skin: no rash, normal turgor Dx/Plan (1) Dysphagia Code(s): R13.10 - DYSPHAGIA, UNSPECIFIED Status: Acute Qualifiers: Dysphagia type: oral phase Qualified Code(s): R13.11 - Dysphagia, oral phase Comment: post surgical. Surgical service started on steroids. Anesthesia consulted for CLIPPER AND TURNER pump. (2) Acute respiratory failure with hypoxia Code(s): J96.01 - ACUTE RESPIRATORY FAILURE WITH HYPOXIA Status: Acute Comment: Stable. Being weaned off O2. Likely 2/2 post surgical dysphagia and mild acute CHF. Will continue diuretics- diuresing well and oral steroids for dysphagia. Cardiology on board. Will follow recs. (3) Acute congestive heart failure Code(s): I50.9 - HEART FAILURE, UNSPECIFIED Status: Acute Qualifiers: Heart failure type: diastolic Qualified Code(s): I50.31 - Acute diastolic ( congestive) heart failure Comment: Improving. EF 50-55%. Continue diuretics, Coreg (4) HLD (hyperlipidemia) Code(s): E78.5 - HYPERLIPIDEMIA, UNSPECIFIED Status: Acute Qualifiers: Hyperlipidemia type: unspecified Qualified Code(s): E78.5 - Hyperlipidemia , unspecified Comment: Continue Statins (5) HTN (hypertension) Code(s): I10 - ESSENTIAL (PRIMARY) HYPERTENSION Status: Acute Qualifiers: Hypertension type: essential hypertension Qualified Code(s): I10 - Essential (primary) hypertension Comment: Continue amlodipine, coreg. Clonidine and hydralazine PRN. (6) Hypothyroidism Code(s): E03.9 - HYPOTHYROIDISM, UNSPECIFIED Status: Acute Qualifiers: Hypothyroidism type: unspecified Qualified Code(s): E03.9 - Hypothyroidism , unspecified Comment: Continue Levothyroxine. (7) DM2 (diabetes mellitus, type 2) Status: Acute Qualifiers: Diabetes mellitus complication status: without complication Diabetes mellitus superintendent terminal insulin use: without shelter use Qualified Code(s): E11.9 - Type 2 diabetes mellitus without complications Comment: Well controlled. (8) Paroxysmal atrial fibrillation Code(s): I48.0 - PAROXYSMAL ATRIAL FIBRILLATION Status: Acute Comment: Rate controlled. No antiplatelets or AC 2/2 recent cervical fusion for 2 weeks ( surgery date 08/24/17). - Plan cont current plan of care, plan discussed w/ family, PT/OT, socially responsible investment adviser, incentive spirometry, DVT proph w/SCDs Continue pain management w CLIPPER AND TURNER -: Cardiology on board, recs appreciated. -: Back pain- CT dissection negative. Likely from deconditioning. -: PT/OT on board. Pt likely to be d/c to rehab * . Review of Systems - Medications/Allergies Allergies/Adverse Reactions: Allergies Allergy/AdvReac Type Severity Reaction Status Date / Time egg Allergy Verified 08/21/17 14:30 Penicillins Allergy Verified 08/21/17 14:30 Medications: Current Medications Acetaminophen (Tylenol) 650 mg PO Q4H PRN PRN Reason: Headache/Fever or Pain Acetaminophen (Tylenol) 1,000 mg PO 0300,0900,1500,2100 [place] Stop: 08/30/17 03:01 Last Admin: 08/29/17 08:53 Dose: 1,000 mg Amlodipine Besylate (Norvasc) 2.5 mg PO DAILY [facility] Last Admin: 08/29/17 08:54 Dose: 2.5 mg Atorvastatin Calcium (Lipitor) 40 mg PO HS [facility] Last Admin: 08/28/17 21:16 Dose: 40 mg Bisacodyl (Dulcolax) 10 mg PO DAILYPRN PRN PRN Reason: Constipation Carvedilol (Coreg) 12.5 mg PO BID[facility] Last Admin: 08/29/17 08:54 Dose: 12.5 mg Clonidine (Catapres) 0.1 mg PO BID PRN PRN Reason: SBP > 180 Last Admin: 08/26/17 20:56 Dose: 0.1 mg Dextrose/Water (Dextrose 50%) 25 gm SLOW IVP PRN PRN PRN Reason: Hypoglycemia Diphenhydramine HCl (Benadryl) 25 mg IVP Q3H PRN PRN Reason: Itching Last Admin: 08/28/17 08:29 Dose: 25 mg Diphenhydramine HCl (Benadryl) 25 mg PO Q3H PRN PRN Reason: Itching Diphenhydramine HCl (Benadryl) 25 mg IM Q3H PRN PRN Reason: Itching Docusate Sodium (Colace Liquid) 100 mg PO BID [facility] Last Admin: 08/28/17 20:45 Dose: 100 mg Furosemide (Lasix) 20 mg SLOW IVP DAILY [facility] Last Admin: 08/29/17 08:49 Dose: 20 mg Glucagon (Glucagon) 1 mg IM PRN PRN PRN Reason: Hypoglycemia Guaifenesin/Dextromethorphan (Robitussin Dm) 15 ml PO Q4H PRN PRN Reason: Cough Hydralazine HCl (Apresoline) 10 mg SLOW IVP Q4H PRN PRN Reason: Hypertension Last Admin: 08/26/17 14:32 Dose: 10 mg Dextrose/Water (D5w) 1,000 mls @ 0 mls/hr IV .Q0M PRN; As Directed PRN Reason: Hypoglycemia Fentanyl Citrate 2,000 mcg/ (Sodium Chloride) 100 mls @ 0 mls/hr IV INF PRN; As Directed PRN Reason: Pain Last Admin: 08/29/17 03:23 Dose: 100 mls Insulin Human Lispro (Humalog) 0 units SC .MILD SLIDING SCALE PRN PRN Reason: Mild Correctional Scale Ketorolac Tromethamine (Toradol) 15 mg IVP 0300,0900,1500,2100 [facility] Stop: 08/30/17 03:01 Last Admin: 08/29/17 08:46 Dose: 15 mg Levothyroxine Sodium (Synthroid) 25 mcg PO QAM [facility] Last Admin: 08/29/17 08:52 Dose: 25 mcg Losartan Potassium (Cozaar) 100 mg PO DAILY [facility] Last Admin: 08/29/17 08:51 Dose: 100 mg Magnesium Hydroxide (Milk Of Magnesium) 30 ml PO DAILYPRN PRN PRN Reason: Constipation Metformin HCl (Glucophage) 1,000 mg PO BID-[facility] Last Admin: 08/29/17 08:52 Dose: 1,000 mg Naloxone HCl (Narcan) 0.2 mg IV Q5MIN PRN PRN Reason: Opiate Reversal Nitroglycerin (Nitrostat) 0.4 mg SL Q5MIN PRN PRN Reason: Chest Pain Ondansetron HCl (Zofran Odt) 4 mg PO Q6H PRN PRN Reason: Nausea/Vomiting Ondansetron HCl (Zofran Odt) 4 mg PO Q8H PRN PRN Reason: Nausea/Vomiting Ondansetron HCl (Zofran) 4 mg IVP Q6H PRN PRN Reason: Nausea/Vomiting Last Admin: 08/28/17 08:30 Dose: 4 mg Pantoprazole Sodium (Protonix) 40 mg IVP 2100 [facility] Last Admin: 08/28/17 20:48 Dose: 40 mg Pantoprazole Sodium (Protonix) 40 mg IVP DAILY [facility] Last Admin: 08/28/17 08:57 Dose: 40 mg Promethazine HCl (Phenergan) 12.5 mg IM Q4H PRN PRN Reason: Nausea/Vomiting Sodium Chloride (Flush - Normal Saline) 10 ml IVF Q12HR [facility] Last Admin: 08/29/17 08:46 Dose: 10 ml Sodium Chloride (Flush - Normal Saline) 10 ml IVF PRN PRN PRN Reason: Saline Flush Tizanidine HCl (Zanaflex) 4 mg PO Q6H PRN PRN Reason: Muscle Spasm Last Admin: 08/27/17 11:14 Dose: 4 mg Zolpidem Tartrate (Ambien) 5 mg PO HSPRN PRN PRN Reason: Insomnia
[2017-08-29] MEDS: cloNIDine 0.1 MG TAB PO PRN (11:57)
[2017-08-29] MEDS: Ondansetron HCl/PF 4 MG/2 ML Vial IVP PRN (12:19)
[2017-08-29] MEDS: HumaLOG 300 UNITS/3 ML VIAL SC PRN (16:56)
[2017-08-29] MEDS: Carvedilol 25 MG TAB PO SCH (16:56)
[2017-08-29] MEDS: Atorvastatin Calcium 40 MG TAB PO SCH (20:48)
[2017-08-30] MEDS: Ketorolac Tromethamine 30 MG/ML VIAL IVP SCH (03:17)
[2017-08-30] MEDS: Acetaminophen 500 MG TAB PO SCH (03:17)
[2017-08-30] MEDS: hydrALAZINE 20 MG/ML VIAL SLOW IVP PRN (03:51)
[2017-08-30 05:44] LABS: #Eosinphils 0.2 thou/uL (0.0-0.7); #Lymphocytes 1.7 thou/uL (1.20-3.40); #Monocytes 0.8 thou/uL (0.11-0.59); #Neutrophils 9.5 thou/uL (1.40-6.50); %Basophils 0.2 % (0.0-1.0); %Eosinophils 1.6 % (0.0-10.0); %Lymphocytes 13.9 % (21.0-51.0); %Monocytes 6.5 % (0.0-10.0); %Neutrophils 77.8 % (42.0-75.0); Hemoglobin 13.2 g/dL (12.0-16.0); Mean Corpuscular HGB CONC 33.3 g/dL (32.0-36.0); Mean Corpuscular Hemoglobin 29.4 pg (27.0-31.0); Mean Corpuscular Volume 88.3 fl (81.0-99.0); Mean Platelet Volume 6.7 fL (7.4-10.4); Platelet Count 443 thou/uL (130-400); RBC Distribution Width 11.4 % (11.5-14.5); Red Blood Cell (RBC) Count 4.48 mill/uL (4.20-5.40); White Blood Cell (WBC) Count 12.2 thou/uL (4.8-10.8)
[2017-08-30 05:57] LABS: Anion Gap 13 mmol/L (10-20); BUN (Urea Nitrogen) 26 mg/dL (9.8-20.1); Calc. Creatinine Clearance 95 mL/min (70-130); Calcium 9.6 mg/dL (7.8-10.44); Carbon Dioxide 33 mmol/L (23-31); Chloride 79 mmol/L (98-107); Estimated GFR-MDRD 77; Glucose 112 mg/dL (83-110); Sodium 121 mmol/L (136-145)
[2017-08-30] MEDS ORDERED: methylPREDNISolone 4 mg Tablet PO SCH (08:00)
[2017-08-30] MEDS ORDERED: Amlodipine 5 MG TAB PO SCH (09:00)
[2017-08-30] MEDS ORDERED: Levothyroxine Sodium 25 MCG TAB PO SCH (09:00)
[2017-08-30] MEDS: Docusate Sodium 100 MG/10 ML UDCUP PO SCH ×2 (10:05→20:31)
[2017-08-30] MEDS: Pantoprazole 40 MG VIAL IVP SCH (10:05)
[2017-08-30] MEDS: Acetaminophen 325 MG TAB PO PRN ×2 (10:06→20:32)
[2017-08-30] MEDS: metFORMIN 500 MG TAB PO SCH ×2 (10:06→18:29)
[2017-08-30] MEDS: Losartan 25 MG TAB PO SCH (10:09)
[2017-08-30] MEDS: Carvedilol 25 MG TAB PO SCH ×2 (10:10→17:20)
[2017-08-30] MEDS: Furosemide 20 MG/2 ML VIAL SLOW IVP SCH (10:10)
[2017-08-30] MEDS: Bisacodyl 5 MG TAB PO PRN (10:18)
[2017-08-30] MEDS: tiZANidine HCl 4 MG TAB PO PRN (10:22)
[2017-08-30] MEDS: Ondansetron HCl/PF 4 MG/2 ML Vial IVP PRN (10:26)
[2017-08-30] MEDS ORDERED: guaiFENesin ER 600 MG TAB PO SCH (11:00)
[2017-08-30] MEDS: HumaLOG 300 UNITS/3 ML VIAL SC PRN (11:21)
--- NOTE | 2017-08-30 11:27 | PDOC.PN ---
- Subjective Encounter Start Date: 08/30/17 Encounter Start Time: 09:50 no acute night events. family at beside. family states she is not drinking much of anything but urinating at least 3times a day - Objective Vital Signs & Weight: Vital Signs (12 hours) Temp Pulse Resp BP BP Pulse Ox 08/30/17 10:09 104 H 134/91 H 08/30/17 10:07 104 H 134/91 H 08/30/17 08:52 98.3 F 81 16 160/80 H 92 L 08/30/17 04:00 98.3 F 62 16 96 08/30/17 03:51 65 205/95 H 08/29/17 23:44 97.7 F 65 18 145/72 H 95 Weight Weight 196 lb I&O: 08/29/17 08/30/17 08/31/17 05:59 06:59 06:59 Intake Total Output Total Balance Result Diagrams: 08/30/17 04:45 08/30/17 04:45 Additional Labs: Accuchecks 08/30/17 08/30/17 08/29/17 10:49 05:57 20:10 POC Glucose 200 H 124 H 109 08/29/17 08/29/17 16:36 10:53 POC Glucose 298 H 176 H Phys Exam - Physical Examination Constitutional: NAD HEENT: PERRLA, moist MMs Neck: no nodes, no JVD, supple Respiratory: no wheezing, clear to auscultation bilateral Cardiovascular: RRR, no rub Gastrointestinal: soft, non-tender, no distention Musculoskeletal: pulses present Neurological: non-focal, moves all 4 limbs Psychiatric: A&O x 3 Dx/Plan (1) Hyponatremia Code(s): E87.1 - HYPO-OSMOLALITY AND HYPONATREMIA Status: Acute (2) Acute congestive heart failure Code(s): I50.9 - HEART FAILURE, UNSPECIFIED Status: Acute Qualifiers: Heart failure type: diastolic Qualified Code(s): I50.31 - Acute diastolic ( congestive) heart failure Comment: Improving. EF 50-55%. Continue diuretics, Coreg (3) Acute respiratory failure with hypoxia Code(s): J96.01 - ACUTE RESPIRATORY FAILURE WITH HYPOXIA Status: Acute Comment: Stable. Being weaned off O2. Likely 2/2 post surgical dysphagia and mild acute CHF. Will continue diuretics- diuresing well and oral steroids for dysphagia. Cardiology on board. Will follow recs. (4) DM2 (diabetes mellitus, type 2) Status: Acute Qualifiers: Diabetes mellitus complication status: without complication Diabetes mellitus truck terminal manager insulin use: without truck terminal manager use Qualified Code(s): E11.9 - Type 2 diabetes mellitus without complications Comment: Well controlled. (5) Dysphagia Code(s): R13.10 - DYSPHAGIA, UNSPECIFIED Status: Acute Qualifiers: Dysphagia type: oral phase Qualified Code(s): R13.11 - Dysphagia, oral phase Comment: post surgical. Surgical service started on steroids. Anesthesia consulted for MEDIA PRODUCER pump. (6) HTN (hypertension) Code(s): I10 - ESSENTIAL (PRIMARY) HYPERTENSION Status: Acute Qualifiers: Hypertension type: essential hypertension Qualified Code(s): I10 - Essential (primary) hypertension Comment: Continue amlodipine, coreg. Clonidine and hydralazine PRN. (7) Cervical radiculopathy Code(s): M54.12 - RADICULOPATHY, CERVICAL REGION Status: Acute - Plan cont current plan of care, plan discussed w/ family, PT/OT, respiratory therapy * . hold lasix monitor Na levels in am pain mgmt control add miralaz encourage better PO intake
[2017-08-30] MEDS: Atorvastatin Calcium 40 MG TAB PO SCH (20:31)
[2017-08-30] MEDS: guaiFENesin ER 600 MG TAB PO SCH (20:32)
[2017-08-31] MEDS: Acetaminophen 325 MG TAB PO PRN ×3 (03:02→20:50)
[2017-08-31] MEDS: Bisacodyl 5 MG TAB PO PRN (05:30)
[2017-08-31] MEDS: Levothyroxine Sodium 25 MCG TAB PO SCH (05:30)
[2017-08-31 05:51] LABS: #Eosinphils 0.1 thou/uL (0.0-0.7); #Lymphocytes 1.4 thou/uL (1.20-3.40); #Monocytes 0.7 thou/uL (0.11-0.59); #Neutrophils 8.7 thou/uL (1.40-6.50); %Basophils 0.2 % (0.0-1.0); %Eosinophils 0.9 % (0.0-10.0); %Monocytes 6.3 % (0.0-10.0); %Neutrophils 79.6 % (42.0-75.0); Hemoglobin 12.6 g/dL (12.0-16.0); Mean Corpuscular HGB CONC 33.2 g/dL (32.0-36.0); Mean Corpuscular Hemoglobin 29.1 pg (27.0-31.0); Mean Corpuscular Volume 87.9 fl (81.0-99.0); Mean Platelet Volume 6.3 fL (7.4-10.4); Platelet Count 408 thou/uL (130-400); RBC Distribution Width 11.3 % (11.5-14.5); Red Blood Cell (RBC) Count 4.33 mill/uL (4.20-5.40); White Blood Cell (WBC) Count 10.9 thou/uL (4.8-10.8)
[2017-08-31 06:04] LABS: Anion Gap 11 mmol/L (10-20); BUN (Urea Nitrogen) 24 mg/dL (9.8-20.1); Calc. Creatinine Clearance 94 mL/min (70-130); Carbon Dioxide 36 mmol/L (23-31); Chloride 80 mmol/L (98-107); Estimated GFR-MDRD 76; Glucose 137 mg/dL (83-110); Potassium 3.6 mmol/L (3.5-5.1); Sodium 123 mmol/L (136-145)
[2017-08-31] MEDS ORDERED: methylPREDNISolone 4 mg Tablet PO SCH (08:00)
[2017-08-31] MEDS ORDERED: Polyethylene Glycol 3350 17 GM Packet PO PRN (08:14)
[2017-08-31] MEDS ORDERED: Bisacodyl 10 MG SUPP PR PRN (08:49)
--- NOTE | 2017-08-31 09:13 | PRG ---
DATE OF SERVICE: 08/31/2017 Ms. Leon's main complaint today is she has severe constipation. She has no chest pain. Her breathing is improved. Her oxygen saturation is 97% on nasal cannula. PHYSICAL EXAMINATION: LUNGS: Clear. CARDIAC: Normal S1, normal S2. ABDOMEN: Soft, nontender. EXTREMITIES: No edema. ASSESSMENT: 1. Paroxysmal atrial fibrillation, she is maintaining sinus rhythm. 2. Occasional PVC. 3. Obesity with BMI 38.5. 4. Recent cervical spine surgery. 5. Hyponatremia. PLAN: 1. She needs to limit fluid intake. 2. Repeat base met tomorrow. 3. Stop diltiazem. 4. Continue carvedilol. 5. Continue amlodipine. 6. Continue losartan. 7. Cannot use anticoagulants or antiplatelet drugs at this point. 8. We will go ahead and proceed with stress testing while she is here in the hospital that is her pr eference.
[2017-08-31] MEDS: Docusate Sodium 100 MG/10 ML UDCUP PO SCH (09:20)
[2017-08-31] MEDS: guaiFENesin ER 600 MG TAB PO SCH ×2 (09:21→20:46)
[2017-08-31] MEDS: Pantoprazole 40 MG VIAL IVP SCH (09:21)
[2017-08-31] MEDS: Losartan 25 MG TAB PO SCH (09:21)
[2017-08-31] MEDS: Amlodipine 10 MG TAB PO SCH (09:24)
[2017-08-31] MEDS: Carvedilol 25 MG TAB PO SCH ×2 (09:26→16:30)
[2017-08-31] MEDS: metFORMIN 500 MG TAB PO SCH ×2 (09:26→16:31)
--- NOTE | 2017-08-31 10:26 | PDOC.PN ---
- Subjective Encounter Start Date: 08/31/17 Encounter Start Time: 08:30 states she really has the urge to have a BM but cannot and us making her uncomfortable - Objective Vital Signs & Weight: Vital Signs (12 hours) Temp Pulse Resp BP Pulse Ox 08/31/17 09:24 62 08/31/17 09:15 97.6 F 62 18 176/85 H 93 L 08/31/17 05:47 98 F 62 17 162/77 H 96 Weight Weight 197 lb 3.2 oz I&O: 08/30/17 08/31/17 09/01/17 06:59 06:59 06:59 Intake Total 960 Balance 960 Result Diagrams: 08/31/17 04:52 08/31/17 04:52 Additional Labs: Accuchecks 08/31/17 08/30/17 08/30/17 05:59 20:59 15:38 POC Glucose 145 H 125 H 126 H 08/30/17 10:49 POC Glucose 200 H Phys Exam - Physical Examination Constitutional: NAD HEENT: PERRLA, moist MMs Neck: no nodes, no JVD Respiratory: no wheezing, clear to auscultation bilateral Cardiovascular: RRR, no rub Gastrointestinal: soft, non-tender, positive bowel sounds Musculoskeletal: pulses present Neurological: non-focal, moves all 4 limbs Psychiatric: A&O x 3 Skin: cap refill <2 seconds Dx/Plan (1) Hyponatremia Code(s): E87.1 - HYPO-OSMOLALITY AND HYPONATREMIA Status: Acute (2) Acute congestive heart failure Code(s): I50.9 - HEART FAILURE, UNSPECIFIED Status: Acute Qualifiers: Heart failure type: diastolic Qualified Code(s): I50.31 - Acute diastolic ( congestive) heart failure Comment: Improving. EF 50-55%. Continue diuretics, Coreg (3) Acute respiratory failure with hypoxia Code(s): J96.01 - ACUTE RESPIRATORY FAILURE WITH HYPOXIA Status: Acute Comment: Stable. Being weaned off O2. Likely 2/2 post surgical dysphagia and mild acute CHF. Will continue diuretics- diuresing well and oral steroids for dysphagia. Cardiology on board. Will follow recs. (4) DM2 (diabetes mellitus, type 2) Status: Acute Qualifiers: Diabetes mellitus complication status: without complication Diabetes mellitus highway construction inspector insulin use: without highway construction inspector use Qualified Code(s): E11.9 - Type 2 diabetes mellitus without complications Comment: Well controlled. (5) Dysphagia Code(s): R13.10 - DYSPHAGIA, UNSPECIFIED Status: Acute Qualifiers: Dysphagia type: oral phase Qualified Code(s): R13.11 - Dysphagia, oral phase Comment: post surgical. Surgical service started on steroids. Anesthesia consulted for SURVEY WORKER pump. (6) HTN (hypertension) Code(s): I10 - ESSENTIAL (PRIMARY) HYPERTENSION Status: Acute Qualifiers: Hypertension type: essential hypertension Qualified Code(s): I10 - Essential (primary) hypertension Comment: Continue amlodipine, coreg. Clonidine and hydralazine PRN. (7) Cervical radiculopathy Code(s): M54.12 - RADICULOPATHY, CERVICAL REGION Status: Acute - Plan cont current plan of care, plan discussed w/ family, PT/OT, social service liaison * . stress testing per cardiology GABBY cardizeporfirio continue other current meds suppository to help with BM continue PT monitor I/O's monitor sodium levels in AM
[2017-08-31] MEDS: HumaLOG 300 UNITS/3 ML VIAL SC PRN ×2 (16:37→20:50)
[2017-08-31] MEDS: Atorvastatin Calcium 40 MG TAB PO SCH (20:46)
[2017-09-01] MEDS: Docusate Sodium 100 MG/10 ML UDCUP PO SCH (00:31)
[2017-09-01] MEDS: Acetaminophen 325 MG TAB PO PRN ×5 (00:51→23:50)
[2017-09-01] MEDS: cloNIDine 0.1 MG TAB PO PRN (03:38)
[2017-09-01 05:41] LABS: Anion Gap 11 mmol/L (10-20); BUN (Urea Nitrogen) 17 mg/dL (9.8-20.1); Calc. Creatinine Clearance 112 mL/min (70-130); Calcium 9.1 mg/dL (7.8-10.44); Carbon Dioxide 33 mmol/L (23-31); Chloride 84 mmol/L (98-107); Estimated GFR-MDRD Greater than 90; Glucose 112 mg/dL (83-110); Potassium 3.5 mmol/L (3.5-5.1); Sodium 124 mmol/L (136-145)
[2017-09-01] MEDS: Losartan 25 MG TAB PO SCH (05:45)
[2017-09-01] MEDS: Amlodipine 10 MG TAB PO SCH (05:46)
[2017-09-01] MEDS: Levothyroxine Sodium 25 MCG TAB PO SCH (05:48)
[2017-09-01] MEDS: guaiFENesin ER 600 MG TAB PO SCH ×2 (05:49→20:37)
[2017-09-01] MEDS: Carvedilol 25 MG TAB PO SCH ×2 (05:49→15:48)
[2017-09-01] MEDS: Pantoprazole 40 MG VIAL IVP SCH (05:49)
[2017-09-01 06:12] LABS: Band 1 % (5-11); Eosinophils 1 % (0-10); Hemoglobin 12.7 g/dL (12.0-16.0); Lymphocytes 13 % (21-51); MDiff Complete? YES; Mean Corpuscular HGB CONC 33.4 g/dL (32.0-36.0); Mean Corpuscular Hemoglobin 29.1 pg (27.0-31.0); Mean Platelet Volume 6.6 fL (7.4-10.4); Monocytes 7 % (0-10); Neutrophil 77 % (42-75); PLT Morphology Comment Appears Adequate; Platelet Count 398 thou/uL (130-400); RBC Distribution Width 11.3 % (11.5-14.5); RBC Morphology Normal; Reactive Lymphocytes 1 % (0-10); Red Blood Cell (RBC) Count 4.37 mill/uL (4.20-5.40); White Blood Cell (WBC) Count 12.8 thou/uL (4.8-10.8)
[2017-09-01] MEDS: Ondansetron HCl/PF 4 MG/2 ML Vial IVP PRN (06:18)
[2017-09-01 07:58] LABS: Hemoglobin A1c 6.1 % (4.0-6.0)
[2017-09-01] MEDS ORDERED: methylPREDNISolone 4 mg Tablet PO SCH (08:00)
[2017-09-01] MEDS ORDERED: Docusate 100 MG CAP PO PRN (08:44)
[2017-09-01] MEDS: Amlodipine 5 MG TAB PO SCH (09:00)
--- NOTE | 2017-09-01 09:05 | PRG ---
DATE OF SERVICE: 09/01/2017 HISTORY: Ms. Leon states she still does not feel well. She said she has been up and around out of the bed, however. PHYSICAL EXAMINATION: VITAL SIGNS: Her blood pressure is variable, earlier it was 138/74. Most recent 106/59, but she has a lot of labile high blood pressure. LUNGS: Clear. CARDIAC: Normal S1, S2. ABDOMEN: Soft, nontender. EXTREMITIES: No edema. Serum sodium is 124, slightly better. ASSESSMENT: 1. Paroxysmal atrial fibrillation, mostly in sinus rhythm. 2. Recent Neurosurgery. 3. Blood pressure is somewhat labile. 4. Hyponatremia, slowly improving. 5. Diastolic heart failure, stable. Cannot take diuretics due to low sodium. PLAN: 1. She is on Carvedilol 25 mg twice a day. 2. I stopped the diltiazem yesterday due to the diastolic heart failure. 3. Reduce amlodipine to 5 mg a day. Would really like to avoid orthostatic hypotension. 4. The patient declined the exercise portion of the stress test, she states that she will do it toda y. 5. Need to fluid restrict for the low sodium. 6. She is on losartan. 7. Suspect she may need to go to the rehab facility to help encourage her to mobilize as she has bee n very inactive.
[2017-09-01] MEDS ORDERED: Regadenoson 0.4 MG/5 ML SYRINGE ONE (10:29)
[2017-09-01] MEDS: HumaLOG 300 UNITS/3 ML VIAL SC PRN (12:07)
[2017-09-01] MEDS: metFORMIN 500 MG TAB PO SCH (12:08)
--- NOTE | 2017-09-01 13:38 | NM ---
CARDIAC SPECT: HISTORY: A 72-year-old female with chest pain, hypertension, diabetes, dyslipidemia. TECHNIQUE: A myocardial perfusion scan was performed using the single-isotope 2-day protocol with 28 mCi Technet ium 99m sestamibi for both stress and rest images. Pharmacologic stress with LexiScan was monitored a nd interpreted by Dr. Guan. FINDINGS: Homogeneous tracer distribution is seen in the myocardial segments on rest images. The stress images demonstrate mildly decreased tracer localization in the inferolateral wall. GATED SPECT LVEF: 65%. WALL MOTION EXAM: Normal. IMPRESSION: Findings are suspicious for reversible ischemia in the inferolateral wall. POS: [facility]
--- NOTE | 2017-09-01 16:05 | PDOC.PN ---
- Subjective Encounter Start Date: 09/01/17 Encounter Start Time: 16:03 Subjective: nsg notes rev, yvonne ovn, at bedside pt c/o of feeling "tired " and -: generally unwell, non specific. Denies any overt chest pain or SOB. States -: she was up all night having multiple BM. Doesnt want to work with PT right now at this point in time. - Objective Vital Signs & Weight: Vital Signs (12 hours) Temp Pulse Resp BP BP Pulse Ox 09/01/17 15:40 97.7 F 65 16 129/66 97 09/01/17 11:56 97.6 F 64 16 131/60 96 09/01/17 09:00 64 09/01/17 08:06 97.9 F 59 L 18 106/59 L 94 L 09/01/17 05:46 63 138/74 Weight Weight 193 lb I&O: 08/31/17 09/01/17 09/02/17 06:59 06:59 06:59 Intake Total 960 1720 Balance 960 1720 Result Diagrams: 09/01/17 04:53 09/01/17 04:53 Additional Labs: Accuchecks 09/01/17 09/01/17 08/31/17 12:01 05:42 19:51 POC Glucose 219 H 145 H 189 H 08/31/17 08/31/17 16:37 10:58 POC Glucose 184 H 173 H Phys Exam - Physical Examination Constitutional: NAD HEENT: PERRLA, sclera anicteric Respiratory: no wheezing, no rales, no rhonchi diminished and coarse throughout Cardiovascular: RRR, no significant murmur, no rub soft heart tones Gastrointestinal: soft, non-tender, no distention, positive bowel sounds Neurological: moves all 4 limbs Dx/Plan - Plan * . Review of Systems - Medications/Allergies Allergies/Adverse Reactions: Allergies Allergy/AdvReac Type Severity Reaction Status Date / Time egg Allergy Verified 08/21/17 14:30 Penicillins Allergy Verified 08/21/17 14:30 Medications: Current Medications Acetaminophen (Tylenol) 650 mg PO Q4H PRN PRN Reason: Headache/Fever or Pain Last Admin: 09/01/17 13:50 Dose: 650 mg Amlodipine Besylate (Norvasc) 5 mg PO DAILY [place] Last Admin: 09/01/17 09:00 Dose: Not Given Atorvastatin Calcium (Lipitor) 40 mg PO [facility] Last Admin: 08/31/17 20:46 Dose: 40 mg Bisacodyl (Dulcolax) 10 mg PO DAILYPRN PRN PRN Reason: Constipation Last Admin: 08/31/17 05:30 Dose: 10 mg Bisacodyl (Dulcolax) 10 mg [place] DAILYPRN PRN PRN Reason: Constipation Last Admin: 08/31/17 09:24 Dose: 10 mg Carvedilol (Coreg) 25 mg PO BID-[facility] Last Admin: 09/01/17 15:48 Dose: 25 mg Clonidine (Catapres) 0.1 mg PO BID PRN PRN Reason: SBP > 180 Last Admin: 09/01/17 03:38 Dose: 0.1 mg Dextrose/Water (Dextrose 50%) 25 gm SLOW IVP PRN PRN PRN Reason: Hypoglycemia Diphenhydramine HCl (Benadryl) 25 mg IVP Q3H PRN PRN Reason: Itching Last Admin: 08/28/17 08:29 Dose: 25 mg Diphenhydramine HCl (Benadryl) 25 mg PO Q3H PRN PRN Reason: Itching Diphenhydramine HCl (Benadryl) 25 mg IM Q3H PRN PRN Reason: Itching Docusate Sodium (Colace) 100 mg PO DAILYPRN PRN PRN Reason: Constipation Glucagon (Glucagon) 1 mg IM PRN PRN PRN Reason: Hypoglycemia Guaifenesin (Mucinex) 1,200 mg PO Q12HR [facility] Last Admin: 09/01/17 05:49 Dose: 1,200 mg Guaifenesin/Dextromethorphan (Robitussin Dm) 15 ml PO Q4H PRN PRN Reason: Cough Last Admin: 09/01/17 04:58 Dose: 15 ml Hydralazine HCl (Apresoline) 10 mg SLOW IVP Q4H PRN PRN Reason: Hypertension Last Admin: 08/30/17 03:51 Dose: 10 mg Dextrose/Water (D5w) 1,000 mls @ 0 mls/hr IV .Q0M PRN; As Directed PRN Reason: Hypoglycemia Insulin Human Lispro (Humalog) 0 units SC .MILD SLIDING SCALE PRN PRN Reason: Mild Correctional Scale Last Admin: 09/01/17 12:07 Dose: 3 unit Levothyroxine Sodium (Synthroid) 25 mcg PO 0600 [facility] Last Admin: 09/01/17 05:48 Dose: 25 mcg Losartan Potassium (Cozaar) 100 mg PO DAILY [facility] Last Admin: 09/01/17 05:45 Dose: 100 mg Magnesium Hydroxide (Milk Of Magnesium) 30 ml PO DAILYPRN PRN PRN Reason: Constipation Last Admin: 08/31/17 10:39 Dose: 30 ml Metformin HCl (Glucophage) 1,000 mg PO BID-[facility] Metformin HCl (Glucophage) 1,000 mg PO 2100 [facility] Stop: 09/01/17 23:00 Naloxone HCl (Narcan) 0.2 mg IV Q5MIN PRN PRN Reason: Opiate Reversal Nitroglycerin (Nitrostat) 0.4 mg SL Q5MIN PRN PRN Reason: Chest Pain Ondansetron HCl (Zofran Odt) 4 mg PO Q6H PRN PRN Reason: Nausea/Vomiting Ondansetron HCl (Zofran Odt) 4 mg PO Q8H PRN PRN Reason: Nausea/Vomiting Ondansetron HCl (Zofran) 4 mg IVP Q6H PRN PRN Reason: Nausea/Vomiting Last Admin: 09/01/17 06:18 Dose: 4 mg Pantoprazole Sodium (Protonix) 40 mg PO DAILY [facility] Polyethylene Glycol (Miralax) 17 gm PO DAILYPRN PRN PRN Reason: Constipation Promethazine HCl (Phenergan) 12.5 mg IM Q4H PRN PRN Reason: Nausea/Vomiting Sodium Chloride (Flush - Normal Saline) 10 ml IVF Q12HR [facility] Last Admin: 09/01/17 09:00 Dose: 10 ml Sodium Chloride (Flush - Normal Saline) 10 ml IVF PRN PRN PRN Reason: Saline Flush Last Admin: 08/30/17 10:16 Dose: 10 ml Tizanidine HCl (Zanaflex) 4 mg PO Q6H PRN PRN Reason: Muscle Spasm Last Admin: 08/30/17 10:22 Dose: 4 mg Zolpidem Tartrate (Ambien) 5 mg PO HSPRN PRN PRN Reason: Insomnia
[2017-09-01] MEDS ORDERED: Communication Order-Pharmacy FS SCH (19:15)
[2017-09-01] MEDS: Atorvastatin Calcium 40 MG TAB PO SCH (20:37)
--- NOTE | 2017-09-01 20:53 | PRG ---
DATE OF SERVICE: 09/01/2017 HISTORY: Ms. Leon underwent stress testing today and it actually revealed that she has evidence of probable inferior ischemia. I had a discussion with the family and the patient, they would like a d efinitive diagnosis to see whether she does or does not have coronary artery disease. Recommend proc eeding to cardiac catheterization tomorrow and cannot do intervention as she cannot be treated with a ntiplatelet drugs. The risks were explained to the patient and the family including risk of stroke, heart attack, iodine allergy, loss of blood supply to the leg or kidney. The patient cannot undergo stent implantation yet as she cannot be treated with antiplatelet drugs yet. If she needs a stent, t o come back at a later time or bypass would also to be done at a later time. They understand and wis h to proceed. Dr. Guan will do this procedure tomorrow.
[2017-09-01] MEDS ORDERED: metFORMIN 500 MG TAB PO SCH (21:00)
[2017-09-02] MEDS ORDERED: Diazepam 5 MG TAB PO SCH (03:00)
[2017-09-02] MEDS: Acetaminophen 325 MG TAB PO PRN ×3 (03:21→18:03)
[2017-09-02 05:28] LABS: #Basophils 0.1 thou/uL (0.0-0.2); #Eosinphils 0.2 thou/uL (0.0-0.7); #Lymphocytes 1.3 thou/uL (1.20-3.40); #Monocytes 0.6 thou/uL (0.11-0.59); #Neutrophils 9.8 thou/uL (1.40-6.50); %Basophils 0.5 % (0.0-1.0); %Eosinophils 1.4 % (0.0-10.0); %Lymphocytes 10.8 % (21.0-51.0); %Monocytes 5.4 % (0.0-10.0); %Neutrophils 81.9 % (42.0-75.0); Hemoglobin 12.4 g/dL (12.0-16.0); Mean Corpuscular HGB CONC 33.4 g/dL (32.0-36.0); Mean Corpuscular Hemoglobin 29.3 pg (27.0-31.0); Mean Corpuscular Volume 87.5 fl (81.0-99.0); Mean Platelet Volume 6.1 fL (7.4-10.4); Platelet Count 417 thou/uL (130-400); RBC Distribution Width 11.2 % (11.5-14.5); Red Blood Cell (RBC) Count 4.24 mill/uL (4.20-5.40); White Blood Cell (WBC) Count 11.9 thou/uL (4.8-10.8)
[2017-09-02] MEDS: Levothyroxine Sodium 25 MCG TAB PO SCH (05:34)
[2017-09-02] MEDS: Carvedilol 25 MG TAB PO SCH ×2 (05:34→18:00)
[2017-09-02 05:57] LABS: Anion Gap 12 mmol/L (10-20); BUN (Urea Nitrogen) 17 mg/dL (9.8-20.1); Calc. Creatinine Clearance 108 mL/min (70-130); Calcium 9.1 mg/dL (7.8-10.44); Carbon Dioxide 31 mmol/L (23-31); Chloride 85 mmol/L (98-107); Estimated GFR-MDRD Greater than 90; Glucose 109 mg/dL (83-110); Potassium 3.5 mmol/L (3.5-5.1); Sodium 124 mmol/L (136-145)
[2017-09-02] MEDS ORDERED: Sodium Chloride 0.9% 1,000 ML IV SCH (06:00)
[2017-09-02] MEDS: Losartan 25 MG TAB PO SCH (06:09)
[2017-09-02] MEDS: Amlodipine 5 MG TAB PO SCH (06:10)
[2017-09-02] MEDS: guaiFENesin ER 600 MG TAB PO SCH (06:10)
--- NOTE | 2017-09-02 06:57 | EKG ---
Test Reason : Blood Pressure : / mmHG Vent. Rate : 063 BPM Atrial Rate : 063 BPM P-R Int : 186 ms QRS Dur : 100 ms QT Int : 416 ms P-R-T Axes : -01 017 032 degrees QTc Int : 425 ms Normal sinus rhythm Cannot rule out Inferior infarct (cited on or before 26-AUG-2017) Abnormal ECG When compared with ECG of 26-AUG-2017 09:33, (Unconfirmed) Premature ventricular complexes are no longer Present Confirmed by DR. Uriel QUACH ([id number]) on 09/02/2017 6:56:41 AM Referred By: MAIN Confirmed By:DR. Uriel QUACH
[2017-09-02] MEDS ORDERED: Lidocaine 1% (PF) 30 ML VIAL ONE (07:17)
[2017-09-02] MEDS: metFORMIN 500 MG TAB PO SCH ×2 (08:14→17:59)
[2017-09-02] MEDS ORDERED: Fentanyl 250 MCG/5 ML VIAL ONE (08:37)
[2017-09-02] MEDS ORDERED: Midazolam HCl 2 mg/2 ml Vial ONE (08:37)
[2017-09-02] MEDS ORDERED: Iopamidol 370 76% 100 ML VIAL ONE (11:54)
[2017-09-02] MEDS: tiZANidine HCl 4 MG TAB PO PRN (15:36)
[2017-09-02 16:29] VITALS: BP 133/64; TEMP 98.1
== END 2017-09-02 19:31 | DRG 286 ==
LOC: ERS 06:13 → 2SW 10:32 → OBSVTOIN 08-27 14:45 → 2NO 08-28 13:02
PROVIDERS: ADMIT Internal Medicine; ATTEND Internal Medicine
PROC: 4A023N7 Measurement of Cardiac Sampling and Pressure, Left Heart, Percutaneous Approach (ICD-10-PCS; principal; 2017-09-02)
PROC: B2111ZZ Fluoroscopy of Multiple Coronary Arteries using Low Osmolar Contrast (ICD-10-PCS; 2017-09-02)
PROC: B2151ZZ Fluoroscopy of Left Heart using Low Osmolar Contrast (ICD-10-PCS; 2017-09-02)
DX: I50.33 Acute on chronic diastolic (congestive) heart failure (principal); J96.01 Acute respiratory failure with hypoxia; R13.19 Other dysphagia; E87.1 Hypo-osmolality and hyponatremia; E66.01 Morbid (severe) obesity due to excess calories; I11.0 Hypertensive heart disease with heart failure; E11.9 Type 2 diabetes mellitus without complications; Z79.84 Long term (current) use of oral hypoglycemic drugs; E78.5 Hyperlipidemia, unspecified; E03.9 Hypothyroidism, unspecified; I48.0 Paroxysmal atrial fibrillation; G89.29 Other chronic pain; Z68.38 Body mass index [BMI] 38.0-38.9, adult; K59.09 Other constipation
CPT/HCPCS: 36415; 36416; 71045; 71046; 71275; 72040; 76000; 78452; 80048; 80053; 82553; 83036; 83880; 84443; 84484; 85025; 93005; 93010; 93017; 93306; 93458; 93798; 96361; 96374; 96375; 99152; J2270; A4216; A9500; C1713; C1769; C1776; C9113; G8978-GP-CL; G8979-GP-CJ; G8987-GO-CL; G8988-GO-CJ; G8996-GN-CI; G8996-GN-CK; G8997-GN-CI; G8997-GN-CJ; J0131; J0360; J1100; J1170; J1200; J1644; J1885; J1940; J1956; J2001; J2250; J2405; J2550; J2704; J2785; J3010; J3490; J7050; J7620

== ENCOUNTER 2017-09-10 14:06 | Outpatient (CLI) | payer MEDICARE, OTHER ==
--- NOTE | 2017-09-10 15:28 | RAD ---
3 VIEWS CERVICAL SPINE: Date: 09/10/17 COMPARISON: 08/26/17. HISTORY: Cervical spondylosis with recent cervical spine surgery. FINDINGS: Anterior diskectomy and fusion hardware is present at the C5-6/C6-7 level. The prevertebral soft tiss ue swelling noted on the prior examination anterior to the C2 vertebral body has resolved. There is r esidual prevertebral soft tissue swelling anterior to the postoperative hardware measuring 2.4 cm, sl ightly improved. No significant anterolisthesis or retrolisthesis is evident. Open-mouth odontoid vie w demonstrates a normal appearing dens and C1-2 articulation. IMPRESSION: Postoperative change consistent with C5-6/C6-7 anterior diskectomy and fusion. There has been interva l improvement in previously noted soft tissue swelling in the prevertebral space with residual soft t issue swelling noted anterior to the screw plate. POS: [facility]
== END 2017-09-10 14:07 | disposition home or self-care (01) ==
LOC: TBSIIMAG 14:06
PROVIDERS: ATTEND Neurological Surgery
DX: M47.892 Other spondylosis, cervical region (principal); M50.80 Other cervical disc disorders, unspecified cervical region; Z98.1 Arthrodesis status
CPT/HCPCS: 72040

== ENCOUNTER 2017-10-28 14:55 | Outpatient (CLI) | payer MEDICARE, OTHER ==
--- NOTE | 2017-10-28 16:39 | RAD ---
CERVICAL SPINE THREE VIEWS: History: 72-year-old female with history of spinal stenosis in the cervical region status post neck surgery, M arch 2017. Comparison: 08-13-17 FINDINGS: Anterior cervical fusion changed at C5, C6, and C7 with anterior metal plate and screws. The previous ly noted inferior prevertebral soft tissue swelling seen on the prior study has resolved. C7-T1 is pa rtially obscured. No overt malalignment. No evidence for acute fracture involving the visualized cerv ical spine. IMPRESSION: Anterior cervical fusion changes at C5, C6, and C7. Resolution of the previously noted inferior and p revertebral soft tissue swelling. Cervical spondylosis. POS: [facility]
== END 2017-10-28 14:56 | disposition home or self-care (01) ==
LOC: TBSIIMAG 14:55
PROVIDERS: ATTEND Neurological Surgery
DX: M48.02 Spinal stenosis, cervical region (principal); M47.892 Other spondylosis, cervical region; Z98.1 Arthrodesis status
CPT/HCPCS: 72040

== ENCOUNTER 2017-11-05 05:40 | Observation (INO) | payer MEDICARE, OTHER ==
[2017-11-05 06:36] LABS: #Basophils 0.1 thou/uL (0.0-0.2); #Eosinphils 0.1 thou/uL (0.0-0.7); #Lymphocytes 1.2 thou/uL (1.20-3.40); #Monocytes 0.4 thou/uL (0.11-0.59); #Neutrophils 5.9 thou/uL (1.40-6.50); %Eosinophils 0.9 % (0.0-10.0); %Lymphocytes 15.4 % (21.0-51.0); %Monocytes 5.3 % (0.0-10.0); %Neutrophils 77.4 % (42.0-75.0); Hemoglobin 12.6 g/dL (12.0-16.0); Mean Corpuscular HGB CONC 33.4 g/dL (32.0-36.0); Mean Corpuscular Hemoglobin 29.6 pg (27.0-31.0); Mean Corpuscular Volume 88.7 fl (81.0-99.0); Mean Platelet Volume 6.5 fL (7.4-10.4); Platelet Count 384 thou/uL (130-400); RBC Distribution Width 12.5 % (11.5-14.5); Red Blood Cell (RBC) Count 4.25 mill/uL (4.20-5.40); White Blood Cell (WBC) Count 7.7 thou/uL (4.8-10.8)
[2017-11-05 06:54] LABS: Anion Gap 15 mmol/L (10-20); BUN (Urea Nitrogen) 19 mg/dL (9.8-20.1); Calc. Creatinine Clearance 53 mL/min (70-130); Calcium 9.8 mg/dL (7.8-10.44); Carbon Dioxide 28 mmol/L (23-31); Chloride 98 mmol/L (98-107); Estimated GFR-MDRD 44; Glucose 126 mg/dL (83-110); Potassium 3.5 mmol/L (3.5-5.1); Sodium 137 mmol/L (136-145)
[2017-11-05] MEDS ORDERED: CEFAZOLIN/Water 2 GM/20 ML SYRINGE ONE (07:00)
[2017-11-05] MEDS ORDERED: Clindamycin/D5W 900 mg/50 ml Premix Bag ONE (07:07)
[2017-11-05] MEDS ORDERED: Levofloxacin 500 mg/D5W 100 ml Premix Bag ONE (07:07)
[2017-11-05] MEDS ORDERED: Midazolam HCl 2 mg/2 ml Vial ONE (07:21)
[2017-11-05] MEDS ORDERED: Fentanyl 100 MCG/2 ML VIAL ONE ×2 (07:21→09:03)
[2017-11-05] MEDS ORDERED: Nitroglycerin 2% Ointment 1 INCH/1 GM Packet ONE (07:28)
[2017-11-05] MEDS ORDERED: Promethazine HCl 25 MG/ML VIAL IM PRN ×2 (08:51→10:28)
[2017-11-05] MEDS ORDERED: Promethazine HCl 25 MG/ML VIAL SLOW IVP PRN (08:51)
[2017-11-05] MEDS ORDERED: Ondansetron HCl/PF 4 MG/2 ML Vial IVP PRN ×2 (08:51→10:28)
[2017-11-05] MEDS ORDERED: SUGAMMADEX SODIUM 500 MG/5 ML VIAL ONE (08:52)
[2017-11-05] MEDS ORDERED: Ondansetron HCl/PF 4 MG/2 ML Vial ONE (09:48)
[2017-11-05] MEDS ORDERED: PROPOFOL 200 MG/20 ML VIAL ONE (09:48)
[2017-11-05] MEDS ORDERED: Dexamethasone 20 MG/5 ML VIAL ONE (09:48)
[2017-11-05] MEDS ORDERED: PHENYLEPHRINE-NS 100 MCG/ML 10 ML SYRINGE ONE (09:48)
[2017-11-05] MEDS ORDERED: Glycopyrrolate 0.2 MG/ML 5 ML SYRINGE ONE (09:48)
[2017-11-05] MEDS ORDERED: ePHEDrine/0.9% NaCl/PF SYRINGE 50 mg/10 ml ONE (09:48)
[2017-11-05] MEDS ORDERED: traMADol HCl 50 MG TAB PO PRN ×2 (10:23)
[2017-11-05] MEDS ORDERED: HYDROcodone/Acetaminophen 10/325 mg Tablet PO PRN ×2 (10:24)
[2017-11-05] MEDS ORDERED: Morphine 4 MG/ML VIAL IV PRN ×2 (10:25)
[2017-11-05] MEDS ORDERED: diphenhydrAMINE 25 MG CAP PO PRN (10:26)
[2017-11-05] MEDS ORDERED: tiZANidine HCl 4 MG TAB PO PRN (10:26)
[2017-11-05] MEDS ORDERED: diphenhydrAMINE 50 MG/ML VIAL IVP PRN (10:27)
[2017-11-05] MEDS ORDERED: Promethazine 25 MG TAB PO PRN (10:27)
[2017-11-05] MEDS ORDERED: Promethazine HCl 12.5 MG SUPP PR PRN (10:27)
[2017-11-05] MEDS ORDERED: Milk Of Magnesia 30 ML UDCUP PO PRN (10:29)
[2017-11-05] MEDS ORDERED: Mag-Al 1200 mg/1200 mg/30 ML UDCUP PO PRN (10:29)
[2017-11-05] MEDS ORDERED: Sodium Chloride 0.9% 1,000 ML IV SCH (10:30)
[2017-11-05 11:41] VITALS: BP 100/65; TEMP 97.5; BMI 28.5
--- NOTE | 2017-11-05 14:06 | OP ---
DATE OF PROCEDURE: 11/05/2017 SURGEON: Felipe Aguilar M.D. COMPLIANCE ANALYST: Ada Chung PA-C. PROCEDURE: L3-L4 laminectomy. PROCEDURE IN DETAIL: The patient was brought into the operating room, intubated. She was rolled in the prone position on gel-filled chest rolls. Incision made exposing L3 and L4 and our level was con firmed by x-ray. We performed complete L4 and inferior L3 laminectomy, completely decompressing the neural elements. The wound was extensively irrigated, immaculate hemostasis was secured. Vancomycin powder was applied and the wound was closed in anatomic layers.
[2017-11-05] MEDS ORDERED: Clindamycin/D5W 900 MG in Premix Bag 1 BAG IVPB SCH (16:00)
--- NOTE | 2017-11-05 18:56 | DIS ---
HOSPITAL COURSE: The patient is a 72-year-old female with a past medical history of conges tive heart failure, coronary artery disease, hypertension, hyperlipidemia, lumbar stenosis who underw ent L3-L4 laminectomy for treatment of lumbar stenosis with neurogenic claudication. There were no c omplications with her surgery. Following the procedure, she was transitioned to the med/surg floor w here she was ambulatory without any difficulty. Her pain was well controlled with p.o. medications, she is tolerating a regular diet, and she was voiding appropriately. In preop, she had a rate contro lled atrial fibrillation, no chest pain was reported. No chest pain was reported throughout her admi ssion. Our plan was to initially monitor the patient overnight; however, the patient is adamant abou t going home today. She denies any concurrent complaints at this time. I have discussed this with Alicia Aguilar and he is in agreement that patient could be discharged appropriately. I have discussed home care followup and provided patient prescriptions for hydrocodone and muscle relaxer tizanidine. She will follow up with us in 2 weeks for recheck. Please reach out to Neurosurgery for additional questions or concerns.
--- NOTE | 2017-11-09 18:33 | EKG ---
Test Reason : PREOP Blood Pressure : / mmHG Vent. Rate : 079 BPM Atrial Rate : 083 BPM P-R Int : 000 ms QRS Dur : 098 ms QT Int : 394 ms P-R-T Axes : 000 048 -17 degrees QTc Int : 451 ms Atrial fibrillation with premature ventricular or aberrantly conducted complexes Abnormal ECG When compared with ECG of 27-AUG-2017 14:45, Atrial fibrillation has replaced Sinus rhythm Nonspecific T wave abnormality, worse in Inferior leads T wave inversion now evident in Lateral leads Confirmed by SULAIMAN FELIPE ([id number]) on 11/09/2017 6:32:53 PM Referred By: AAMIR Confirmed By:SULAIMAN FELIPE
== END 2017-11-05 14:54 | disposition home or self-care (01) ==
LOC: SDC 05:40 → SJJU 10:03
PROVIDERS: ADMIT Neurological Surgery; ATTEND Neurological Surgery
PROC: 01NB0ZZ Release Lumbar Nerve, Open Approach (ICD-10-PCS; principal; 2017-11-05)
DX: M48.062 Spinal stenosis, lumbar region with neurogenic claudication (principal); I25.10 Atherosclerotic heart disease of native coronary artery without angina pectoris; E78.5 Hyperlipidemia, unspecified; I11.0 Hypertensive heart disease with heart failure; I50.9 Heart failure, unspecified; E11.9 Type 2 diabetes mellitus without complications; Z79.84 Long term (current) use of oral hypoglycemic drugs; Z79.899 Other long term (current) drug therapy; Z88.0 Allergy status to penicillin; Z91.012 Allergy to eggs
CPT/HCPCS: 36415; 76001; 80048; 85025; 93005; 93010; 96372; J1100; J1956; J2250; J2405; J2550; J2704; J3010; J3370; J3490

== ENCOUNTER 2019-07-08 03:38 | Inpatient (IN) | payer MEDICARE, OTHER ==
[2019-07-08 04:13] LABS: #Lymphocytes 0.9 thou/uL (1.20-3.40); #Monocytes 0.4 thou/uL (0.11-0.59); #Neutrophils 7.7 thou/uL (1.40-6.50); %Basophils 0.1 % (0.0-1.0); %Eosinophils 0.4 % (0.0-10.0); %Lymphocytes 9.5 % (21.0-51.0); %Monocytes 3.9 % (0.0-10.0); %Neutrophils 86.1 % (42.0-75.0); Hemoglobin 11.7 g/dL (12.0-16.0); Mean Corpuscular HGB CONC 31.3 g/dL (32.0-36.0); Mean Corpuscular Hemoglobin 27.7 pg (27.0-31.0); Mean Corpuscular Volume 88.6 fL (78.0-98.0); Platelet Count 355 thou/uL (130-400); RBC Distribution Width 13.3 % (11.5-14.5); Red Blood Cell (RBC) Count 4.21 mill/uL (4.20-5.40)
[2019-07-08 04:33] LABS: ALT (SGPT) 331 U/L (8-55); AST (SGOT) 402 U/L (5-34); Albumin 3.8 g/dL (3.4-4.8); Alkaline Phosphatase 114 U/L (40-110); Anion Gap 17 mmol/L (10-20); BUN (Urea Nitrogen) 19 mg/dL (9.8-20.1); Bilirubin, Total 0.5 mg/dL (0.2-1.2); Calc. Creatinine Clearance 0 mL/min (70-130); Calcium 9.2 mg/dL (7.8-10.44); Carbon Dioxide 24 mmol/L (23-31); Chloride 102 mmol/L (98-107); Estimated GFR-MDRD 62; Globulin 3.4 g/dL (2.4-3.5); Glucose 190 mg/dL (83-110); Potassium 3.8 mmol/L (3.5-5.1); Protein, Total 7.2 g/dL (6.0-8.3); Sodium 139 mmol/L (136-145)
[2019-07-08] MEDS ORDERED: Furosemide 40 MG/4 ML VIAL ONE (04:54)
[2019-07-08 06:35] VITALS: BMI 30.2
[2019-07-08 07:42] LABS: Troponin I Less than 0.010 ng/mL (< 0.028)
--- NOTE | 2019-07-08 08:17 | RAD ---
FRONTAL RADIOGRAPH CHEST: DATE: 07/08/2019. COMPARISON: 08/28/2017. HISTORY: Shortness of breath. FINDINGS: The cardiac silhouette is enlarged. There is new pulmonary vascular congestion with new perihilar an d bibasilar interstitial prominence as well as probable small new bilateral pleural effusions. IMPRESSION: Findings suggesting interval development of pulmonary edema. Inflammatory/infectious process cannot be fully excluded. Followup to resolution following treatment recommended. POS: [facility]
[2019-07-08] MEDS ORDERED: Dextrose 5% in Water 1,000 ML IV PRN (08:41)
[2019-07-08] MEDS ORDERED: Insulin Regular 300 UNITS/3 ML VIAL SC PRN ×2 (08:41)
[2019-07-08] MEDS ORDERED: Dextrose 50% Abboject 50 ML SYRINGE SLOW IVP PRN (08:41)
[2019-07-08] MEDS ORDERED: Ondansetron PF 4 MG/2 ML Vial IVP PRN (08:45)
[2019-07-08] MEDS ORDERED: Ondansetron ODT 4 MG TAB PO PRN (08:45)
[2019-07-08] MEDS ORDERED: Calcium Carbonate 500 MG ChewTAB PO PRN (08:45)
[2019-07-08] MEDS ORDERED: Losartan 25 MG TAB PO SCH (09:00)
[2019-07-08] MEDS ORDERED: Aspirin 81 mg Enteric Coated Tablet PO SCH (09:00)
[2019-07-08] MEDS: Lisinopril 5 MG TAB PO SCH ×2 (09:27→20:59)
[2019-07-08] MEDS: Carvedilol 6.25 MG TAB PO SCH ×2 (09:27→20:59)
[2019-07-08] MEDS: Acetaminophen 325 MG TAB PO PRN (09:27)
[2019-07-08] MEDS: Heparin 5,000 UNITS/ML VIAL SC SCH ×2 (09:27→10:42)
[2019-07-08] MEDS ORDERED: Digoxin 0.5 MG/2 ML AMP SLOW IVP SCH ×2 (09:45→11:30)
[2019-07-08] MEDS ORDERED: Enoxaparin Sodium 60 MG/0.6 ML SYRINGE SC SCH ×2 (09:45→21:00)
[2019-07-08] MEDS ORDERED: Magnesium Sulfate 4 GM in Sodium Chloride 0.9% 250 ML 250 ML IVPB SCH (10:45)
[2019-07-08] MEDS ORDERED: Potassium Chloride 20 MEQ TAB PO SCH ×2 (12:00→18:00)
--- NOTE | 2019-07-08 13:17 | CON ---
DATE OF CONSULTATION: 07/08/2019 REASON FOR CONSULTATION: Diastolic congestive heart failure and atrial fibrillation. HISTORY OF PRESENT ILLNESS: Ms. Evie Leon is a pleasant 74-year-old woman. The patient was admitted to the hospital with progressive difficulty breathing. The patient states that she has been retaining some fluid, but the biggest problem is that she became very short of breath and came here to the emergency room. She had no chest pain or pressure. The patient otherwise states she has been doing fairly well. She needs to come to the hospital, but could not breathe and finally came to the emergency room. PAST MEDICAL HISTORY: 1. History of diastolic congestive heart failure. 2. History of paroxysmal atrial fibrillation. 3. Cardiac catheterization showing no obstructive coronary artery disease in any major coronary vessel in August 2017. MEDICATIONS: At home; 1. Atorvastatin. 2. Amlodipine. 3. Levothyroxine. 4. Lisinopril. 5. Furosemide. 6. Carvedilol. 7. Metformin. ALLERGIES: EGGS AND PENICILLIN. REVIEW OF SYSTEMS: CONSTITUTIONAL: No significant weight gain or loss. VISION: No changes. HEARING: No changes. PULMONARY: Positive for shortness of breath. CARDIAC: No chest pain. GASTROINTESTINAL: No nausea, vomiting, or diarrhea. SKIN: No rashes. NEUROLOGIC: No unilateral weakness or numbness. PSYCHIATRIC: No unusual depression or anxiety. FAMILY HISTORY: Noncontributory. SOCIAL HISTORY: No alcohol or tobacco. PHYSICAL EXAMINATION: VITAL SIGNS: Blood pressure 140/100, pulse is 110 to 120s and irregular. HEENT: Eyes, sclerae nonicteric. Mouth, mucous membranes moist. NECK: Supple. No lymphadenopathy. LUNGS: Clear. CARDIAC: Normal S1, normal S2. ABDOMEN: Soft and nontender. EXTREMITIES: No clubbing. No cyanosis. There is some moderate edema. Pedal pulses are palpable. PERTINENT LABORATORY DATA: Hemoglobin is 11.7. Creatinine 0.8, potassium this morning is 3.8, AST 402, ALT 331, alkaline phosphatase 114. BNP is elevated at 1685. EKG; atrial fibrillation with a rapid rate. ASSESSMENT: 1. Diastolic congestive heart failure. 2. Atrial fibrillation with a rapid rate contributing to the diastolic heart failure. 3. Increased liver function tests, suspect that is hepatic congestion secondary to heart failure. 4. Cardiac catheterization showing no obstructive coronary artery disease on catheterization in 2018. PLAN: 1. Give digoxin. 2. Continue carvedilol. 3. Lovenox here in the hospital. 4. Probably would be a good candidate for Eliquis when she leaves if the liver function tests improve. The patient is reluctant to do that. She is worried about the cost, but that would probably be the best medicine especially if liver function tests improve. Coumadin will be very problematic with these liver function tests. 5. We will stop aspirin for now. She does not have any obstructive coronary artery disease. 6. PT, PTT tomorrow. Job ID: [id number]
--- NOTE | 2019-07-08 13:45 | PDOC.EVN ---
Event Note - Event Note Event Note: Note dictated. Full code. DPOA - spouse
--- NOTE | 2019-07-08 14:07 | HP ---
PRIMARY CARE PHYSICIAN: Dr. Eusebio Atwood. PRIMARY GRADUATE ASSISTANT ATHLETIC TRAINER: Dr. Solorio. CHIEF COMPLAINT: Shortness of breath. HISTORY OF PRESENT ILLNESS: The patient is a 74-year-old white female with congestive heart failure, coronary artery disease, hypertension, hyperlipidemia, and paroxysmal atrial fibrillation, presented to the emergency room with shortness of breath. Over the last 1 to 2 weeks, the patient has gradual worsening shortness of breath that got worse over the last 24 to 48 hours. She was short of breath on minimal exertion. She also had orthopnea. Denies any paroxysmal nocturnal dyspnea. She also had bilateral lower extremity swelling. She had some cough, which was essentially nonproductive. She also felt nauseous, however, denies any vomiting. No chest pain, palpitations, lightheadedness, or syncope reported. No recent immobilization or travel reported. In the emergency room, the patient was found to be in significant respiratory distress. Initial vital signs showed temperature of 98, respirations of 24, pulse rate of 96, with a blood pressure of 151/106 with O2 saturation of 95% on 4 L nasal cannula. Workup was consistent with congestive heart failure exacerbation along with hypoxia. She received nebulizer treatment along with Lasix in the emergency room. PAST MEDICAL HISTORY: 1. Chronic diastolic heart failure. 2. Diabetes mellitus, type 2. 3. Hypertension. 4. Coronary artery disease. 5. Hypothyroidism. 6. Paroxysmal atrial fibrillation. The patient discontinued anticoagulation due to cost. 7. Chronic low back pain. PAST SURGICAL HISTORY: 1. Bilateral knee surgery. 2. Cervical surgery. 3. Partial hysterectomy. 4. Appendectomy. ALLERGIES: THE PATIENT IS ALLERGIC TO PENICILLIN AND EGGS. CURRENT HOME MEDICATIONS: 1. Amlodipine 2.5 mg daily. 2. Lipitor 40 mg at bedtime. 3. Carvedilol 6.25 mg b.i.d. 4. Lasix 20 mg b.i.d. 5. Levothyroxine 25 mcg daily. 6. Lisinopril 10 mg daily. 7. Metformin 500 mg b.i.d. 8. Potassium chloride 10 mEq daily. SOCIAL HISTORY: The patient currently lives at home with her . She denies current use of smoking, alcohol, or drug use. FAMILY HISTORY: Positive for heart disease. REVIEW OF SYSTEMS: All other review of systems were reviewed and were found negative. PHYSICAL EXAMINATION: VITAL SIGNS: As discussed above. GENERAL: A 74-year-old female, in [id number] respiratory distress, able to complete short phrases. HEENT: Head, atraumatic and normocephalic. Sclerae anicteric. Moist mucous membranes. No oral lesion. NECK: Supple. JVD elevated. No carotid bruit. LUNGS: Diffuse rhonchi with bibasilar rales and expiratory wheezing. There is accessory muscle use. HEART: S1 and S2 present. Irregularly irregular. No rubs or gallops. ABDOMEN: Soft, nontender. Bowel sounds present. EXTREMITIES: 2+ edema in bilateral lower extremity. No calf tenderness. SKIN: Warm and dry. LYMPH NODES: No palpable lymph nodes in the neck. PERIPHERAL VASCULAR: Radial pulses palpable bilaterally. MUSCULOSKELETAL: No joint swelling tenderness. LABORATORY FINDINGS: CBC showed WBC 9.0 with hemoglobin 11.7, hematocrit 37.3, platelets of 355. Chemistry showed sodium 139, potassium 3.8, chloride 102, bicarb 24, BUN 16, creatinine 0.89, glucose of 190. AST of 402, ALT of 331, alkaline phosphatase of 114. BNP was 1685. Troponins were negative. Magnesium was 1.4. IMAGING STUDIES: EKG by my review showed atrial fibrillation with rapid ventricular response with heart rate of 115 with PVCs. Chest x-ray by my review showed pulmonary edema. Echocardiogram in August of 2017 showed ejection fraction of 50% to 55%. IMPRESSION: 1. Acute hypoxic respiratory failure secondary to [id number] diastolic heart failure exacerbation. 2. Atrial fibrillation with rapid ventricular response, currently not on anticoagulation. 3. Hypomagnesemia. 4. Coronary artery disease. 5. Diabetes mellitus type 2. 6. Abnormal LFTs secondary to passive hepatic congestion. 7. Chronic kidney disease, stage 2. 8. Hyperlipidemia. 9. Hypothyroidism. 10. Obesity with a BMI of 30.3. PLAN: The patient will be monitored on the telemetry unit. She will be started on IV Lasix 40 mg twice a day along with 1500 mL per day fluid restriction. Cardiology will be consulted. She just received digoxin and has been started on anticoagulation per Cardiology. We will add nebulizer treatment. We will resume TAWANDA inhibitor and beta blockers. Daily weights. Replace magnesium. Recheck labs in a.m. We will check coagulation profile in a.m. Plan of care was discussed with the patient in detail. She stated understanding. Job ID: [id number]
[2019-07-08] MEDS: Furosemide 40 MG/4 ML VIAL SLOW IVP SCH (14:48)
[2019-07-08] MEDS: Ipratropium Bromide 2.5 ml Neb NEB PRN (14:55)
[2019-07-08] MEDS: Ipratropium Bromide 2.5 ml Neb NEB SCH ×2 (18:46→23:29)
[2019-07-08] MEDS: Enoxaparin Sodium 80 MG/0.8 ML SYRINGE SC SCH (21:06)
[2019-07-09 04:42] LABS: INR-International Normal Ratio 1.1; PTT 32.4 SEC (22.9-36.1); Prothrombin Time 14.1 SEC (12.0-14.7)
[2019-07-09 04:44] LABS: #Eosinphils 0.1 thou/uL (0.0-0.7); #Lymphocytes 1.2 thou/uL (1.20-3.40); #Monocytes 0.4 thou/uL (0.11-0.59); #Neutrophils 6.4 thou/uL (1.40-6.50); %Basophils 0.3 % (0.0-1.0); %Lymphocytes 15.2 % (21.0-51.0); %Monocytes 5.3 % (0.0-10.0); %Neutrophils 78.3 % (42.0-75.0); Hemoglobin 10.8 g/dL (12.0-16.0); Mean Corpuscular HGB CONC 31.8 g/dL (32.0-36.0); Mean Corpuscular Hemoglobin 28.1 pg (27.0-31.0); Mean Corpuscular Volume 88.3 fL (78.0-98.0); Platelet Count 332 thou/uL (130-400); RBC Distribution Width 13.1 % (11.5-14.5); Red Blood Cell (RBC) Count 3.83 mill/uL (4.20-5.40); White Blood Cell (WBC) Count 8.2 thou/uL (4.8-10.8)
[2019-07-09 04:56] LABS: ALT (SGPT) 190 U/L (8-55); AST (SGOT) 110 U/L (5-34); Albumin 3.4 g/dL (3.4-4.8); Alkaline Phosphatase 88 U/L (40-110); Anion Gap 13 mmol/L (10-20); BUN (Urea Nitrogen) 17 mg/dL (9.8-20.1); Bilirubin, Total 0.5 mg/dL (0.2-1.2); Calc. Creatinine Clearance 75 mL/min (70-130); Carbon Dioxide 27 mmol/L (23-31); Chloride 105 mmol/L (98-107); Estimated GFR-MDRD 79; Glucose 125 mg/dL (83-110); Magnesium 1.9 mg/dL (1.6-2.6); Potassium 4.6 mmol/L (3.5-5.1); Protein, Total 6.4 g/dL (6.0-8.3); Sodium 140 mmol/L (136-145)
[2019-07-09] MEDS: Levothyroxine Sodium 25 MCG TAB PO SCH (05:49)
[2019-07-09] MEDS: Furosemide 40 MG/4 ML VIAL SLOW IVP SCH ×2 (05:49→14:17)
[2019-07-09] MEDS: Ipratropium Bromide 2.5 ml Neb NEB SCH ×3 (06:34→19:02)
[2019-07-09] MEDS: Carvedilol 6.25 MG TAB PO SCH ×2 (08:47→21:09)
[2019-07-09] MEDS: Lisinopril 5 MG TAB PO SCH ×2 (08:49→21:09)
[2019-07-09] MEDS: Enoxaparin Sodium 80 MG/0.8 ML SYRINGE SC SCH ×2 (08:49→21:10)
--- NOTE | 2019-07-09 10:31 | PDOC.HOSPP ---
- Subjective Encounter Date: 07/09/19 Encounter Time: 10:05 Subjective: Patient seen and examined for resp failure. SOB improving. Mild dry cough. No new complaints. No overnight events - Objective Vital Signs & Weight: Vital Signs (12 hours) Temp Pulse Resp BP BP BP Pulse Ox 07/09/19 08:49 89 07/09/19 08:47 129/76 07/09/19 07:53 97.6 F 102 H 18 140/90 96 07/09/19 06:36 96 07/09/19 06:34 89 16 07/09/19 03:57 97.4 F L 85 22 H 161/93 H 96 07/08/19 23:37 81 134/81 07/08/19 23:29 74 16 98 Weight Weight 151 lb 11.2 oz I&O: 07/08/19 07/09/19 07/10/19 06:59 06:59 06:59 Intake Total 1164 Output Total 625 Balance 539 Result Diagrams: 07/09/19 04:06 07/09/19 04:06 Additional Labs: Accuchecks 07/09/19 07/08/19 07/08/19 05:56 19:59 18:41 POC Glucose 131 H 147 H 204 H 07/08/19 10:43 POC Glucose 151 H Laboratory Tests 07/08/19 07/08/19 07/08/19 03:52 03:52 09:39 Total Bilirubin AST 402 H ALT 331 H Alkaline Phosphatase 114 H Troponin I 0.020 B-Natriuretic Peptide 1685.1 H 07/09/19 04:06 Total Bilirubin 0.5 AST 110 H ALT 190 H Alkaline Phosphatase 88 Troponin I B-Natriuretic Peptide EKG Reviewed by me: Yes (Tele Afib) Hospitalist ROS - Review of Systems Respiratory: reports: SOB with excertion. denies: cough, dry, shortness of breath, hemoptysis, pleuritic pain, sputum, wheezing, other Cardiovascular: denies: chest pain, palpitations, orthopnea, paroxysmal noc. dyspnea, edema, light headedness, other Gastrointestinal: denies: nausea, vomiting, abdominal pain, diarrhea, constipation, melena, hematochezia, other - Medication Medications: Active Medications Generic Name Dose Route Start Last Admin Trade Name Freq PRN Reason Stop Dose Admin Acetaminophen 325 mg 07/08/19 08:46 07/08/19 09:27 Tylenol PO 325 mg Q6H PRN Administration Headache/Fever or Pain Carvedilol 6.25 mg 07/08/19 09:00 07/09/19 08:47 Coreg PO 6.25 mg BID [place] Administration Enoxaparin Sodium 70 mg 07/09/19 09:00 07/09/19 08:49 Lovenox SC 70 mg 0900,2100 [place] Administration Furosemide 40 mg 07/08/19 14:00 07/09/19 05:49 Lasix SLOW IVP 40 mg 0600,1400 [place] Administration Ipratropium [place] 2.5 ml 07/08/19 13:29 07/08/19 14:55 Atrovent NEB 2.5 ml [id number] PRN Administration SOB &/or Wheezing Levothyroxine Sodium 25 mcg 07/09/19 06:00 07/09/19 05:49 Synthroid PO 25 mcg 0600 [place] Administration Lisinopril 5 mg 07/08/19 09:00 07/09/19 08:49 Zestril PO 5 mg BID [place] Administration Sodium Chloride 10 ml 07/08/19 08:45 07/09/19 05:49 Flush - Normal Saline IVF 10 ml PRN PRN Administration Saline Flush - Exam General - other findings: Mild resp distress, on O2 NC Heart: no gallops, no rubs, normal peripheral pulses, irregular Respiratory: no wheezes, no rales, rhonchi Gastrointestinal: soft, non-tender, non-distended, normal bowel sounds Extremities: no cyanosis, no clubbing, no edema Skin: normal turgor, no lesions Neurological: no new deficit Psychiatric: normal affect, A&O x 3 Hosp A/P - Plan DVT proph w/SCDs IMPRESSION: 1. Acute hypoxic respiratory failure secondary to [id number] diastolic heart failure exacerbation. 2. Afib with RVR - rate controlled 3. Hypomagnesemia. 4. Coronary artery disease. 5. Diabetes mellitus type 2. 6. Abnormal LFTs secondary to passive hepatic congestion. 7. Chronic kidney disease, stage 2. 8. Hyperlipidemia. 9. Hypothyroidism. 10. Obesity with a BMI of 30.3. PLAN: Cont IV Lasix Cont Full anticoagulation with Lovenox - Patient understands the risk associated with anticoag Cont Coreg LFTs improving Cont sliding scale Cont fluid restriction Wean O2 Cont other meds as above AM labs
[2019-07-09] MEDS ORDERED: Potassium Chloride 20 MEQ TAB PO SCH (17:00)
--- NOTE | 2019-07-09 17:03 | PDOC.CPN ---
- Subjective Date: 07/09/19 Time: 17:08 Interval history: The pt seen and examined. No overnight events. No cardiac complaints. - Objective Allergies/Adverse Reactions: Allergies Allergy/AdvReac Type Severity Reaction Status Date / Time egg Allergy Verified 07/08/19 09:14 Penicillins Allergy Verified 07/08/19 09:14 Visit Medications: Current Medications Acetaminophen (Tylenol) 325 mg PO Q6H PRN PRN Reason: Headache/Fever or Pain Last Admin: 07/08/19 09:27 Dose: 325 mg Calcium Carbonate (Tums) 1,000 mg PO Q4H PRN PRN Reason: Heartburn or Indigestion Carvedilol (Coreg) 6.25 mg PO BID [facility] Last Admin: 07/09/19 08:47 Dose: 6.25 mg Dextrose/Water (Dextrose 50%) 25 gm SLOW IVP PRN PRN PRN Reason: Hypoglycemia Enoxaparin Sodium (Lovenox) 70 mg SC 0900,2100 [facility] Last Admin: 07/09/19 08:49 Dose: 70 mg Furosemide (Lasix) 40 mg SLOW IVP 0600,1400 [facility] Last Admin: 07/09/19 14:17 Dose: 40 mg Glucagon (Glucagon) 1 mg IM PRN PRN PRN Reason: Hypoglycemia Dextrose/Water (D5w) 1,000 mls @ 0 mls/hr IV .Q0M PRN PRN Reason: Hypoglycemia Insulin Human Regular (Humulin R) 0 units SC .MILD SLIDING SCALE PRN PRN Reason: Mild Correctional Scale Last Admin: 07/09/19 11:31 Dose: 2 unit Insulin Human Regular (Humulin R) 0 units SC .BEDTIME SLIDING SC PRN PRN Reason: Bedtime Correctional Scale Ipratropium [place] (Atrovent) 2.5 ml NEB [id number] PRN PRN Reason: SOB &/or Wheezing Last Admin: 07/08/19 14:55 Dose: 2.5 ml Ipratropium [place] (Atrovent) 2.5 ml NEB [id number] Last Admin: 07/09/19 14:11 Dose: 2.5 ml Levothyroxine Sodium (Synthroid) 25 mcg PO 0600 [facility] Last Admin: 07/09/19 05:49 Dose: 25 mcg Lisinopril (Zestril) 5 mg PO BID [facility] Last Admin: 07/09/19 08:49 Dose: 5 mg Ondansetron HCl (Zofran Odt) 4 mg PO Q6H PRN PRN Reason: Nausea/Vomiting Ondansetron HCl (Zofran) 4 mg IVP Q6H PRN PRN Reason: Nausea/Vomiting Potassium Chloride (K-Dur) 20 meq PO BID-[facility] Sodium Chloride (Flush - Normal Saline) 10 ml IVF PRN PRN PRN Reason: Saline Flush Last Admin: 07/09/19 05:49 Dose: 10 ml Vital Signs & Weight: Vital Signs Temp Pulse Pulse Pulse Resp BP BP 07/09/19 15:28 97.6 F 87 14 07/09/19 14:17 98 07/09/19 14:11 100 16 07/09/19 12:35 99 100 137/95 H 07/09/19 11:35 98.7 F 89 18 07/09/19 08:49 89 07/09/19 08:47 129/76 07/09/19 07:53 97.6 F 102 H 18 07/09/19 06:36 07/09/19 06:34 89 16 BP BP BP Pulse Ox Pulse Ox Pulse Ox 07/09/19 15:28 144/88 H 97 07/09/19 14:17 128/86 07/09/19 14:11 07/09/19 12:35 134/98 H 99 97 07/09/19 11:35 131/93 H 97 07/09/19 08:49 07/09/19 08:47 07/09/19 07:53 140/90 96 07/09/19 06:36 96 07/09/19 06:34 Weight 151 lb 11.2 oz - Physical Exam General: alert & oriented x3 HEENT: mucus membranes moist Neck: supple neck Cardiac: irregularly regular Lungs: no wheeze, rales, rhonchi, decreased breath sounds - Labs Result Diagrams: 07/09/19 04:06 07/09/19 04:06 Troponin/CKMB Troponin I 0.020 ng/mL (< 0.028) 07/08/19 09:39 - Telemetry Supraventricular conduction: atrial fibrillation - Assessment/Plan Assessment/Plan: 1. 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 Non-ischemic CMY with normal coronary arteries with cath in 08/[address] Solorio - possible d/c home with LifeVest 3. Afib with RVR - rate controlled; On Coreg and Lovenox 4. CKD stage 2 - stable 5. DM type 2 6. Abnormal LFTs 2/2 hepatic congestion - improving 7. HLD 8. Hypothyroidism. MAR reviewed * Echo on 06/22/2019 with EF 20-25%, grade III dd, mod dilated LA, mild MR, TR, and AR * Dr Solorio's pt, but Dr Bañuelos will follow the pt during the hospitalization Pt. seen and eval. by me. I agree with the A/P by the [employer]OR [employer].Continue present management. johnnie
[2019-07-09] MEDS: Ipratropium Bromide 2.5 ml Neb NEB PRN (23:42)
[2019-07-10 05:21] LABS: #Basophils 0.1 thou/uL (0.0-0.2); #Eosinphils 0.2 thou/uL (0.0-0.7); #Lymphocytes 1.4 thou/uL (1.20-3.40); #Monocytes 0.6 thou/uL (0.11-0.59); #Neutrophils 5.1 thou/uL (1.40-6.50); %Basophils 0.7 % (0.0-1.0); %Eosinophils 2.5 % (0.0-10.0); %Lymphocytes 19.2 % (21.0-51.0); %Monocytes 7.7 % (0.0-10.0); %Neutrophils 69.9 % (42.0-75.0); Hemoglobin 11.3 g/dL (12.0-16.0); Mean Corpuscular HGB CONC 32.2 g/dL (32.0-36.0); Mean Corpuscular Volume 90.1 fL (78.0-98.0); Mean Platelet Volume 7.9 fL (7.4-10.4); Platelet Count 317 thou/uL (130-400); RBC Distribution Width 13.3 % (11.5-14.5); Red Blood Cell (RBC) Count 3.91 mill/uL (4.20-5.40); White Blood Cell (WBC) Count 7.2 thou/uL (4.8-10.8)
[2019-07-10 05:41] LABS: ALT (SGPT) 119 U/L (8-55); AST (SGOT) 45 U/L (5-34); Albumin 3.2 g/dL (3.4-4.8); Alkaline Phosphatase 84 U/L (40-110); Anion Gap 13 mmol/L (10-20); BUN (Urea Nitrogen) 16 mg/dL (9.8-20.1); Bilirubin, Total 0.5 mg/dL (0.2-1.2); Calc. Creatinine Clearance 70 mL/min (70-130); Carbon Dioxide 31 mmol/L (23-31); Chloride 98 mmol/L (98-107); Estimated GFR-MDRD 77; Globulin 2.9 g/dL (2.4-3.5); Glucose 99 mg/dL (83-110); Magnesium 1.7 mg/dL (1.6-2.6); Potassium 3.8 mmol/L (3.5-5.1); Protein, Total 6.1 g/dL (6.0-8.3); Sodium 138 mmol/L (136-145)
[2019-07-10] MEDS: Furosemide 40 MG/4 ML VIAL SLOW IVP SCH (06:12)
[2019-07-10] MEDS: Levothyroxine Sodium 25 MCG TAB PO SCH (06:12)
[2019-07-10] MEDS: Ipratropium Bromide 2.5 ml Neb NEB SCH ×3 (06:46→18:40)
[2019-07-10] MEDS ORDERED: Polyethylene Glycol 3350 17 GM Packet PO PRN (07:15)
[2019-07-10] MEDS: Senokot S 8.6-50 MG TAB PO SCH ×2 (08:47→20:39)
[2019-07-10] MEDS: Potassium Chloride 20 MEQ TAB PO SCH ×3 (08:47→17:40)
[2019-07-10] MEDS: Enoxaparin Sodium 80 MG/0.8 ML SYRINGE SC SCH ×2 (08:48→20:40)
[2019-07-10] MEDS: Carvedilol 6.25 MG TAB PO SCH ×2 (08:48→20:39)
[2019-07-10] MEDS: Lisinopril 5 MG TAB PO SCH ×2 (10:01→20:39)
--- NOTE | 2019-07-10 10:51 | PDOC.HOSPP ---
- Subjective Encounter Date: 07/10/19 Encounter Time: 08:30 Subjective: Patient seen and examined for CHF flare/Resp failure. SOB improving. No CP. No new complaints. No overnight events - Objective Vital Signs & Weight: Vital Signs (12 hours) Temp Pulse Resp BP BP Pulse Ox 07/10/19 10:01 106 H 138/79 07/10/19 08:48 109/80 07/10/19 07:35 97.6 F 99 18 136/85 94 L 07/10/19 06:47 98 07/10/19 06:46 106 H 16 07/10/19 04:00 97.6 F 88 23 H 138/72 94 L 07/10/19 00:00 70 20 07/09/19 23:42 80 16 98 Weight Weight 148 lb 4.8 oz I&O: 07/09/19 07/10/19 07/11/19 06:59 06:59 06:59 Intake Total 1164 1500 Output Total 625 4225 Balance 652 -2610 Result Diagrams: 07/10/19 04:36 07/10/19 04:36 Additional Labs: Accuchecks 07/10/19 07/09/19 07/09/19 06:18 20:00 16:45 POC Glucose 99 142 H 116 H 07/09/19 07/09/19 15:29 10:49 POC Glucose 103 199 H EKG Reviewed by me: Yes (Tele Afib) Hospitalist ROS - Review of Systems Constitutional: denies: fever, chills, sweats, weakness, malaise, other Gastrointestinal: denies: nausea, vomiting, abdominal pain, diarrhea, constipation, melena, hematochezia, other - Medication Medications: Active Medications Generic Name Dose Route Start Last Admin Trade Name Freq PRN Reason Stop Dose Admin Acetaminophen 325 mg 07/08/19 08:46 07/08/19 09:27 Tylenol PO 325 mg Q6H PRN Administration Headache/Fever or Pain Carvedilol 6.25 mg 07/08/19 09:00 07/10/19 08:48 Coreg PO 6.25 mg BID [place] Administration Enoxaparin Sodium 70 mg 07/09/19 09:00 07/10/19 08:48 Lovenox SC 70 mg 0900,2100 [place] Administration Insulin Human Regular 0 units 07/08/19 08:41 07/09/19 11:31 Humulin R SC 2 unit .MILD SLIDING SCALE PRN Administration Mild Correctional Scale Ipratropium [place] 2.5 ml 07/08/19 13:29 07/09/19 23:42 Atrovent NEB 2.5 ml [id number] PRN Administration SOB &/or Wheezing Ipratropium [place] 2.5 ml 07/09/19 13:00 07/10/19 06:46 Atrovent NEB 2.5 ml [id number] [place] Administration Levothyroxine Sodium 25 mcg 07/09/19 06:00 07/10/19 06:12 Synthroid PO 25 mcg 0600 [place] Administration Lisinopril 5 mg 07/08/19 09:00 07/10/19 10:01 Zestril PO 5 mg BID [place] Administration Potassium Chloride 20 meq 07/10/19 08:00 07/10/19 08:47 K-Dur PO 20 meq TID-WM [place] Administration Senna/Docusate Sodium 1 tab 07/10/19 09:00 07/10/19 08:47 Senokot S PO 1 tab BID [place] Administration Sodium Chloride 10 ml 07/08/19 08:45 07/10/19 06:12 Flush - Normal Saline IVF 10 ml PRN PRN Administration Saline Flush - Exam General Appearance: NAD Heart: no gallops, no rubs Respiratory: no wheezes, rales, rhonchi Gastrointestinal: non-tender, non-distended, normal bowel sounds Extremities: no cyanosis, no clubbing Extremities - other findings: trace edema Hosp A/P - Plan DVT proph w/lovenox 1. Acute hypoxic respiratory failure secondary to [id number] systolic/ diastolic heart failure exacerbation. 2. Afib with RVR - rate controlled - on Lovenox 3. Hypomagnesemia. 4. Coronary artery disease. 5. Diabetes mellitus type 2.on sliding scale 6. Abnormal LFTs secondary to passive hepatic congestion- improving 7. Chronic kidney disease, stage 2. 8. Hyperlipidemia. 9. Hypothyroidism. 10. Obesity with a BMI of 30.3. PLAN: Change Lasix to 40 mg BID Cont Coreg/Lisinopril Cont fluid restriction Wean O2 Cont other meds as above AM labs ?Home O2 eval in AM Lifevest at or
[2019-07-10] MEDS: Furosemide 40 MG TAB PO SCH (14:24)
--- NOTE | 2019-07-10 15:03 | PDOC.CPN ---
- Subjective Date: 07/10/19 Time: 15:08 Interval history: The pt seen and examined. No overnight events. No cardiac complaints. She walked around senior care today without any cardiac complaints per the pt. However, she is still on 2LNC. - Objective Allergies/Adverse Reactions: Allergies Allergy/AdvReac Type Severity Reaction Status Date / Time egg Allergy Verified 07/08/19 09:14 Penicillins Allergy Verified 07/08/19 09:14 Visit Medications: Current Medications Acetaminophen (Tylenol) 325 mg PO Q6H PRN PRN Reason: Headache/Fever or Pain Last Admin: 07/08/19 09:27 Dose: 325 mg Calcium Carbonate (Tums) 1,000 mg PO Q4H PRN PRN Reason: Heartburn or Indigestion Carvedilol (Coreg) 6.25 mg PO BID [facility] Last Admin: 07/10/19 08:48 Dose: 6.25 mg Dextrose/Water (Dextrose 50%) 25 gm SLOW IVP PRN PRN PRN Reason: Hypoglycemia Enoxaparin Sodium (Lovenox) 70 mg SC 0900,2100 [facility] Last Admin: 07/10/19 08:48 Dose: 70 mg Furosemide (Lasix) 40 mg PO 0900,1400 [facility] Last Admin: 07/10/19 14:24 Dose: 40 mg Glucagon (Glucagon) 1 mg IM PRN PRN PRN Reason: Hypoglycemia Dextrose/Water (D5w) 1,000 mls @ 0 mls/hr IV .Q0M PRN PRN Reason: Hypoglycemia Insulin Human Regular (Humulin R) 0 units SC .MILD SLIDING SCALE PRN PRN Reason: Mild Correctional Scale Last Admin: 07/09/19 11:31 Dose: 2 unit Insulin Human Regular (Humulin R) 0 units SC .BEDTIME SLIDING SC PRN PRN Reason: Bedtime Correctional Scale Ipratropium [place] (Atrovent) 2.5 ml NEB [id number] PRN PRN Reason: SOB &/or Wheezing Last Admin: 07/09/19 23:42 Dose: 2.5 ml Ipratropium [place] (Atrovent) 2.5 ml NEB [id number] Last Admin: 07/10/19 13:27 Dose: 2.5 ml Levothyroxine Sodium (Synthroid) 25 mcg PO 0600 [facility] Last Admin: 07/10/19 06:12 Dose: 25 mcg Lisinopril (Zestril) 5 mg PO BID [facility] Last Admin: 07/10/19 10:01 Dose: 5 mg Ondansetron HCl (Zofran Odt) 4 mg PO Q6H PRN PRN Reason: Nausea/Vomiting Ondansetron HCl (Zofran) 4 mg IVP Q6H PRN PRN Reason: Nausea/Vomiting Polyethylene Glycol (Miralax) 17 gm PO DAILY PRN PRN Reason: Constipation Potassium Chloride (K-Dur) 20 meq PO TID-[facility] Last Admin: 07/10/19 11:44 Dose: 20 meq Senna/Docusate Sodium (Senokot S) 1 tab PO BID [facility] Last Admin: 07/10/19 08:47 Dose: 1 tab Sodium Chloride (Flush - Normal Saline) 10 ml IVF PRN PRN PRN Reason: Saline Flush Last Admin: 07/10/19 06:12 Dose: 10 ml Vital Signs & Weight: Vital Signs Temp Pulse Pulse Pulse Resp BP BP 07/10/19 13:27 95 16 07/10/19 12:34 94 101 H 115/86 07/10/19 10:49 97.3 F L 76 20 07/10/19 10:01 106 H 138/79 07/10/19 08:48 109/80 07/10/19 07:35 97.6 F 99 18 07/10/19 06:47 07/10/19 06:46 106 H 16 07/10/19 04:00 97.6 F 88 23 H BP BP BP Pulse Ox Pulse Ox Pulse Ox 07/10/19 13:27 07/10/19 12:34 120/73 98 96 07/10/19 10:49 108/79 96 07/10/19 10:01 07/10/19 08:48 07/10/19 07:35 136/85 94 L 07/10/19 06:47 98 07/10/19 06:46 07/10/19 04:00 138/72 94 L Weight 148 lb 4.8 oz - Physical Exam General: alert & oriented x3 HEENT: mucus membranes moist Neck: supple neck Cardiac: irregularly regular Lungs: decreased breath sounds - Labs Result Diagrams: 07/10/19 04:36 07/10/19 04:36 Troponin/CKMB Troponin I 0.020 ng/mL (< 0.028) 07/08/19 09:39 - Telemetry Supraventricular conduction: atrial fibrillation - Assessment/Plan Assessment/Plan: 1. 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 Non-ischemic CMY with normal coronary arteries with cath in 08/[address] Solorio - possible d/c home with LifeVest 3. Afib with RVR - rate controlled; On Coreg and Lovenox 4. CKD stage 2 - stable 5. DM type 2 6. Abnormal LFTs 2/2 hepatic congestion - improving 7. HLD 8. Hypothyroidism. MAR reviewed * Echo on 06/22/2019 with EF 20-25%, grade III dd, mod dilated LA, mild MR, TR, and AR * Dr Solorio's pt, but Dr Bañuelos will follow the pt during the hospitalization * LifeVest was ordered today Pt. seen and eval. by me. I agree with the A/P by the [employer]. He is feeling better today. Irreg/irreg.. gjm
[2019-07-10] MEDS: Acetaminophen 325 MG TAB PO PRN (19:30)
[2019-07-10] MEDS ORDERED: Sodium Chloride 0.65% Nasal 44 ML BOT EA NARE PRN (22:07)
[2019-07-10] MEDS ORDERED: Oxymetazoline HCl 0.05% (30 ML BOT) NS PRN (22:08)
[2019-07-10] MEDS: Ipratropium Bromide 2.5 ml Neb NEB PRN (23:30)
[2019-07-11] MEDS: Levothyroxine Sodium 25 MCG TAB PO SCH (04:59)
[2019-07-11] MEDS: Ipratropium Bromide 2.5 ml Neb NEB SCH ×3 (07:02→18:55)
[2019-07-11 07:25] LABS: ALT (SGPT) 93 U/L (8-55); AST (SGOT) 31 U/L (5-34); Albumin 3.5 g/dL (3.4-4.8); Alkaline Phosphatase 90 U/L (40-110); Anion Gap 12 mmol/L (10-20); BUN (Urea Nitrogen) 15 mg/dL (9.8-20.1); Bilirubin, Total 0.5 mg/dL (0.2-1.2); Calc. Creatinine Clearance 67 mL/min (70-130); Calcium 9.3 mg/dL (7.8-10.44); Carbon Dioxide 30 mmol/L (23-31); Chloride 98 mmol/L (98-107); Estimated GFR-MDRD 73; Globulin 3.2 g/dL (2.4-3.5); Glucose 125 mg/dL (83-110); Magnesium 1.9 mg/dL (1.6-2.6); Potassium 4.7 mmol/L (3.5-5.1); Protein, Total 6.7 g/dL (6.0-8.3); Sodium 135 mmol/L (136-145)
[2019-07-11] MEDS: Senokot S 8.6-50 MG TAB PO SCH ×2 (07:49→20:35)
[2019-07-11] MEDS: Lisinopril 5 MG TAB PO SCH ×2 (07:49→20:35)
[2019-07-11] MEDS: Potassium Chloride 20 MEQ TAB PO SCH ×2 (07:50→08:03)
[2019-07-11] MEDS: Carvedilol 6.25 MG TAB PO SCH ×2 (07:50→20:35)
[2019-07-11] MEDS: Enoxaparin Sodium 80 MG/0.8 ML SYRINGE SC SCH (07:50)
[2019-07-11] MEDS: Furosemide 40 MG TAB PO SCH ×2 (07:50→15:43)
[2019-07-11] MEDS ORDERED: Digoxin 0.5 MG/2 ML AMP SLOW IVP SCH (09:45)
[2019-07-11] MEDS ORDERED: Carvedilol 6.25 MG TAB PO SCH (10:00)
--- NOTE | 2019-07-11 10:01 | PRG ---
DATE OF SERVICE: 07/11/2019 SUBJECTIVE: Ms. Leon is doing okay. She is breathing better, but when she gets out and walks in the halls, heart rate goes to over 150 beats per minute. She is sitting on the side of the bed, now pulse is 100 to 110, it is atrial fibrillation. OBJECTIVE: LUNGS: Clear. CARDIAC: Irregularly irregular. ABDOMEN: Soft and nontender. EXTREMITIES: No significant edema. Echocardiogram read by Dr. Kothari shows ejection fraction severely depressed at 20% to 25%. ASSESSMENT: 1. Chronic atrial fibrillation. 2. Depressed left ventricular function as far as I know that is a new diagnosis. 3. Minimal coronary artery disease [place] catheter[place] [address] Guan. Still very rapid rate when she walks. PLAN: 1. Increase Coreg. 2. Give her intravenous digoxin. 3. Arrangements were being made for LifeVest. Need to make sure heart rate is better controlled before going home. Otherwise, she will likely have a LifeVest discharge due to atrial fibrillation with a rapid rate. Hopefully for rate control, consider going home tomorrow. Need to make sure she is stable for going home. She will follow up with Dr. Keith Solorio as an outpatient. Job ID: [id number]
[2019-07-11] MEDS: Ipratropium Bromide 2.5 ml Neb NEB PRN (15:29)
--- NOTE | 2019-07-11 18:17 | PDOC.HOSPP ---
- Subjective Encounter Date: 07/11/19 Encounter Time: 07:30 Subjective: Patient seen and examined for CHF flare. SOB improving. No new complaints. No overnight events - Objective Vital Signs & Weight: Vital Signs (12 hours) Temp Pulse Pulse Pulse Resp BP BP 07/11/19 15:39 97.9 F 94 12 07/11/19 15:29 100 16 07/11/19 13:56 110 H 87 140/80 116/71 07/11/19 12:37 98.2 F 94 18 07/11/19 07:21 98.3 F 117 H 19 07/11/19 07:02 102 H 18 BP Pulse Ox Pulse Ox Pulse Ox 07/11/19 15:39 150/91 H 92 L 07/11/19 15:29 99 07/11/19 13:56 98 91 L 07/11/19 12:37 116/71 92 L 07/11/19 07:21 137/94 H 93 L 07/11/19 07:02 96 Weight Weight 147 lb 12.8 oz I&O: 07/10/19 07/11/19 07/12/19 06:59 06:59 06:59 Intake Total 1500 960 840 Output Total 4225 2300 1600 Balance -2725 -1340 -760 Result Diagrams: 07/10/19 04:36 07/11/19 06:58 Additional Labs: Accuchecks 07/11/19 07/11/19 07/11/19 16:48 10:30 06:20 POC Glucose 99 181 H 120 H 07/10/19 20:42 POC Glucose 116 H EKG Reviewed by me: Yes (Tele Afib) Hospitalist ROS - Review of Systems Respiratory: reports: SOB with excertion. denies: cough, dry, shortness of breath, hemoptysis, pleuritic pain, sputum, wheezing, other Cardiovascular: denies: chest pain, palpitations, orthopnea, paroxysmal noc. dyspnea, edema, light headedness, other Gastrointestinal: denies: nausea, vomiting, abdominal pain, diarrhea, constipation, melena, hematochezia, other - Medication Medications: Active Medications Generic Name Dose Route Start Last Admin Trade Name Freq PRN Reason Stop Dose Admin Acetaminophen 325 mg 07/08/19 08:46 07/10/19 19:30 Tylenol PO 325 mg Q6H PRN Administration Headache/Fever or Pain Enoxaparin Sodium 70 mg 07/09/19 09:00 07/11/19 07:50 Lovenox SC 70 mg 0900,2100 [place] Administration Furosemide 40 mg 07/10/19 14:00 07/11/19 15:43 Lasix PO 40 mg 0900,1400 [place] Administration Insulin Human Regular 0 units 07/08/19 08:41 07/09/19 11:31 Humulin R SC 2 unit .MILD SLIDING SCALE PRN Administration Mild Correctional Scale Ipratropium [place] 2.5 ml 07/08/19 13:29 07/11/19 15:29 Atrovent NEB 2.5 ml [id number] PRN Administration SOB &/or Wheezing Ipratropium [place] 2.5 ml 07/09/19 13:00 07/11/19 15:30 Atrovent NEB Not Given [id number] [place] Levothyroxine Sodium 25 mcg 07/09/19 06:00 07/11/19 04:59 Synthroid PO 25 mcg 0600 [place] Administration Lisinopril 5 mg 07/08/19 09:00 07/11/19 07:49 Zestril PO 5 mg BID [place] Administration Senna/Docusate Sodium 1 tab 07/10/19 09:00 07/11/19 07:49 Senokot S PO 1 tab BID [place] Administration Sodium Chloride 10 ml 07/08/19 08:45 07/10/19 06:12 Flush - Normal Saline IVF 10 ml PRN PRN Administration Saline Flush Sodium Chloride 0.5 ml 07/10/19 22:07 07/10/19 22:28 [place] Nasal [place] 0.65% EA NARE 1 drop TID PRN Administration Nasal Congestion - Exam General Appearance: NAD Heart: no gallops, no rubs Respiratory: no wheezes, rhonchi Gastrointestinal: non-tender, non-distended Extremities: no cyanosis, no edema Hosp A/P - Plan DVT proph w/lovenox 1. Acute hypoxic respiratory failure secondary to [id number] systolic/ diastolic heart failure exacerbation. 2. Afib with RVR - rate controlled - on Lovenox 3. Hypomagnesemia. 4. Coronary artery disease. 5. Diabetes mellitus type 2.on sliding scale 6. Abnormal LFTs secondary to passive hepatic congestion- improving 7. Chronic kidney disease, stage 2. 8. Hyperlipidemia. 9. Hypothyroidism. 10. Obesity with a BMI of 30.3. PLAN: Change Lovenox to Eliquis - Patient understands the risk associated with anticoagulation Cont Lasix PO 40 mg BID Cont Lisinopril Coreg dose increased due to RVR Cont fluid restriction Cont other meds as above Home O2 eval - Patient will prob require home O2 Lifevest BMP in AM
[2019-07-11] MEDS: Apixaban 5 MG TAB PO SCH (20:35)
[2019-07-11] MEDS: Acetaminophen 325 MG TAB PO PRN (23:09)
[2019-07-12 04:45] LABS: Digoxin 0.46 ng/mL (0.8-2.0)
[2019-07-12 04:47] LABS: Anion Gap 11 mmol/L (10-20); BUN (Urea Nitrogen) 19 mg/dL (9.8-20.1); Calc. Creatinine Clearance 61 mL/min (70-130); Carbon Dioxide 33 mmol/L (23-31); Chloride 98 mmol/L (98-107); Estimated GFR-MDRD 65; Glucose 111 mg/dL (83-110); Potassium 3.9 mmol/L (3.5-5.1); Sodium 138 mmol/L (136-145)
[2019-07-12] MEDS: Levothyroxine Sodium 25 MCG TAB PO SCH (05:55)
[2019-07-12] MEDS: Ipratropium Bromide 2.5 ml Neb NEB SCH ×2 (06:43→14:31)
[2019-07-12] MEDS: Lisinopril 5 MG TAB PO SCH (07:51)
[2019-07-12] MEDS: Carvedilol 6.25 MG TAB PO SCH (07:51)
[2019-07-12] MEDS: Apixaban 5 MG TAB PO SCH (07:51)
[2019-07-12] MEDS: Furosemide 40 MG TAB PO SCH ×2 (07:52→13:28)
[2019-07-12] MEDS: Senokot S 8.6-50 MG TAB PO SCH (07:53)
[2019-07-12] MEDS ORDERED: Potassium Chloride 20 MEQ TAB PO SCH (08:00)
--- NOTE | 2019-07-12 13:21 | PRG ---
DATE OF SERVICE: 07/12/2019 SUBJECTIVE: Ms. Leon is doing much better today. OBJECTIVE: VITAL SIGNS: Her heart rate is much better controlled. It is 70 to 80 at rest. LUNGS: Clear. CARDIAC: Irregularly irregular. ABDOMEN: Soft, nontender. EXTREMITIES: There is no edema. ASSESSMENT: 1. Chronic atrial fibrillation. 2. Depressed left ventricular function with an echocardiogram read by Dr. Kothari showing ejection fraction of 20% to 25%. 3. Mild nonobstructive coronary artery disease. PLAN: 1. She is to go home with a LifeVest. 2. She is on carvedilol 12.5 mg twice a day. 3. Digoxin 0.125 mg a day. 4. Eliquis 5 mg twice a day. 5. Lisinopril 5 mg twice a day. 6. Potassium 20 mEq a day. 7. She will follow up with Dr. Keith Solorio within 1 to 2 weeks. Job ID: [id number]
[2019-07-12 15:52] VITALS: BP 138/87; TEMP 97.7
--- NOTE | 2019-07-12 22:06 | DIS ---
DATE OF ADMISSION: 07/08/2019 DATE OF DISCHARGE: 07/12/2019 DISCHARGE DISPOSITION: Home. FOLLOWUP: 1. Follow up with primary care physician, Dr. Eusebio Atwood in 1 week. 2. Follow up with Cardiology, Dr. Keith Solorio. 3. Home oxygen has been arranged. DISCHARGE MEDICATIONS: 1. Lasix 40 mg twice a day. 2. Levothyroxine 25 mcg daily. 3. Potassium 10 mEq b.i.d. 4. Lisinopril 5 mg b.i.d. 5. Digoxin 0.125 mg daily. 6. Carvedilol 12.5 mg b.i.d. 7. Eliquis 5 mg b.i.d. 8. Metformin 500 mg twice a day. 9. Lipitor 40 mg at bedtime. The patient was seen and examined on the day of discharge. Denies any new complaints. Shortness of breath has significantly improved. LifeVest has been arranged. INPATIENT EQUITY TRADER: Cardiology, Dr. Bañuelos. BRIEF HOSPITAL COURSE: The patient is a 74-year-old female with congestive heart failure, diabetes mellitus type 2, coronary artery disease, paroxysmal atrial fibrillation, currently not on anticoagulation, presented to the hospital with shortness of breath. Please refer to the history and physical for further details. The patient was admitted to the hospital with a diagnosis of acute hypoxic respiratory failure secondary to congestive heart failure exacerbation. Echocardiogram showed ejection fraction of 20% to 25% with diastolic dysfunction, mild tricuspid regurgitation, mild mitral regurgitation with a large pleural effusion. She showed good improvement with diuretics. Her weight at discharge was 145 pounds from 155 pounds. She has been started on anticoagulation along with digoxin. Carvedilol dose was also increased. Home oxygen has been arranged. LifeVest has been arranged. The patient has been extensively counseled on congestive heart failure. FINAL DIAGNOSES: 1. Acute hypoxic respiratory failure secondary to acute on chronic systolic/diastolic heart failure exacerbation, ACC stage C. 2. Atrial fibrillation with rapid ventricular response on admission, rate is controlled at this time. The patient has been started on Eliquis. The patient understands the risk associated with anticoagulation. 3. Coronary artery disease. 4. Hypomagnesemia. 5. Diabetes mellitus type 2. 6. Abnormal LFTs secondary to passive hepatic congestion. 7. Chronic kidney disease, stage 2. 8. Hyperlipidemia. 9. Hypothyroidism. 10. Obesity with a BMI of 30.3. TIME SPENT WITH PATIENT: Total time coordinating the discharge of this patient was 33 minutes. Job ID: [id number]
[2019-07-13] MEDS ORDERED: Digoxin 0.125 MG TAB PO SCH (09:00)
== END 2019-07-12 18:29 | disposition home or self-care (01) | DRG 291 ==
LOC: ERS 03:38 → 2NO 05:18
PROVIDERS: ADMIT Internal Medicine; ATTEND Internal Medicine
DX: I13.0 Hypertensive heart and chronic kidney disease with heart failure and stage 1 through stage 4 chronic kidney disease, or unspecified chronic kidney disease (principal); I50.43 Acute on chronic combined systolic (congestive) and diastolic (congestive) heart failure; J96.01 Acute respiratory failure with hypoxia; I48.20 Chronic atrial fibrillation, unspecified; N18.2 Chronic kidney disease, stage 2 (mild); I42.8 Other cardiomyopathies; E83.42 Hypomagnesemia; I25.10 Atherosclerotic heart disease of native coronary artery without angina pectoris; E11.22 Type 2 diabetes mellitus with diabetic chronic kidney disease; K76.1 Chronic passive congestion of liver; E78.5 Hyperlipidemia, unspecified; E03.9 Hypothyroidism, unspecified; E66.9 Obesity, unspecified; Z68.30 Body mass index [BMI] 30.0-30.9, adult; Z79.84 Long term (current) use of oral hypoglycemic drugs; Z90.710 Acquired absence of both cervix and uterus; Z98.890 Other specified postprocedural states; Z88.0 Allergy status to penicillin; Z91.012 Allergy to eggs
CPT/HCPCS: 36415; 36416; 71045; 80048; 80053; 80162; 83605; 83735; 83880; 84484; 85025; 85610; 85730; 87040; 93005; 93306; 93798; 94640; 96374; J1160; J1644; J1650; J1815; J1940; J3475; J7050; J7620

== ENCOUNTER 2019-08-13 00:31 | Emergency (ER) | payer MEDICARE, OTHER ==
[2019-08-13] MEDS ORDERED: Acetaminophen 500 MG TAB ONE (01:14)
--- NOTE | 2019-08-13 08:07 | CT ---
PRELIMINARY REPORT/DIRECT RADIOLOGY/EMERGENCY AFTER HOURS PROCEDURE EXAM: CT Cervical Spine Without Intravenous Contrast. CLINICAL HISTORY: ER 9... , 74F presents to the ED with c/o intermittent neck pain for the last two d ays. Pt reports waking up with pain to bilateral neck yesterday morning. Pt denies trauma or injury t o her neck. Pt does report that she had cervical fusion approx. 1 year ago TECHNIQUE: Axial computed tomography images of the cervical spine without intravenous contrast. Sagit carmelo and coronal reformations performed. COMPARISON: None provided. FINDINGS: BONES: The patient had an anterior spinal fusion from C5-C7. There is uncovertebral joint hypertrophy with a posterior marginal bone spur, causing mild to moderate central spinal canal stenosis and narr owing. DISCS / DEGENERATIVE CHANGES: There is a mild to moderate degenerative disc changes at C3-4 and C4-5 with bulging disc, causing mild central spinal stenosis and bilateral neural from narrowing. SOFT TISSUES: No prevertebral soft tissue swelling. No apical pneumothorax. 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 No evidence of acute fracture or dislocation. ELECTRONICALLY SIGNED BY: Ewelina Bertrand MD Aug 13, 2019 3:25:27 AM TITLE DEPARTMENT MANAGER FINAL REPORT CERVICAL SPINE CT SCAN WITHOUT IV CONTRAST: EMERGENCY AFTER HOURS EXAM TIME: 3:08 AM. DATE: . FINDINGS/IMPRESSION: Anterior cervical fusion changes of C5, C6, and C7. Multilevel disk-osteophytosis and facet arthrosi s, evidence for spondylosis. There is some associated canal, lateral recess, and foraminal stenosis. No acute fracture or dislocation. This report is in agreement with the preliminary report. POS: LENNY
== END 2019-08-13 04:18 | disposition home or self-care (01) ==
LOC: ERS 00:31
DX: M54.2 Cervicalgia (principal); I11.0 Hypertensive heart disease with heart failure; I50.9 Heart failure, unspecified; E11.9 Type 2 diabetes mellitus without complications; E78.00 Pure hypercholesterolemia, unspecified; E03.9 Hypothyroidism, unspecified; Z79.01 Long term (current) use of anticoagulants; Z79.899 Other long term (current) drug therapy; Z79.84 Long term (current) use of oral hypoglycemic drugs
CPT/HCPCS: 72125

== ENCOUNTER 2019-12-01 14:12 | Observation (INO) | payer MEDICARE, OTHER ==
[2019-12-01 15:38] LABS: #Eosinphils 0.1 thou/uL (0.0-0.7); #Lymphocytes 0.7 thou/uL (1.20-3.40); #Monocytes 0.3 thou/uL (0.11-0.59); #Neutrophils 3.1 thou/uL (1.40-6.50); %Basophils 0.6 % (0.0-1.0); %Eosinophils 3.3 % (0.0-10.0); %Lymphocytes 16.8 % (21.0-51.0); %Monocytes 7.7 % (0.0-10.0); %Neutrophils 71.7 % (42.0-75.0); Mean Corpuscular HGB CONC 31.5 g/dL (32.0-36.0); Mean Corpuscular Hemoglobin 28.5 pg (27.0-31.0); Mean Corpuscular Volume 90.5 fL (78.0-98.0); Mean Platelet Volume 7.7 fL (7.4-10.4); Platelet Count 293 thou/uL (130-400); RBC Distribution Width 12.9 % (11.5-14.5); Red Blood Cell (RBC) Count 4.21 mill/uL (4.20-5.40); White Blood Cell (WBC) Count 4.4 thou/uL (4.8-10.8)
[2019-12-01 15:59] LABS: ALT (SGPT) 9 U/L (8-55); AST (SGOT) 12 U/L (5-34); Albumin 3.5 g/dL (3.4-4.8); Alkaline Phosphatase 94 U/L (40-110); Anion Gap 12 mmol/L (10-20); BUN (Urea Nitrogen) 19 mg/dL (9.8-20.1); Bilirubin, Total 0.2 mg/dL (0.2-1.2); CK (CPK) 54 U/L (29-168); Calc. Creatinine Clearance 0 mL/min (70-130); Carbon Dioxide 30 mmol/L (23-31); Chloride 101 mmol/L (98-107); Estimated GFR-MDRD 65; Globulin 3.5 g/dL (2.4-3.5); Glucose 99 mg/dL (83-110); Lipase 19 U/L (8-78); Potassium 3.9 mmol/L (3.5-5.1); Sodium 139 mmol/L (136-145)
--- NOTE | 2019-12-01 16:35 | RAD ---
Exam: Chest one view HISTORY:Chest pain. Shortness of breath Comparison: 07/08/2019 FINDINGS: Line pacing device: Single lead left-sided defibrillator terminates over the right ventricl e Cardiac silhouette:Cardiomegaly Aorta: Atherosclerosis Pulmonary vessels: Normal Costophrenic angles: Clear LUNGS: No masses or consolidation. Pneumothorax: None Osseous abnormalities: None IMPRESSION: 1. No acute cardiopulmonary process. 2. Cardiomegaly without evidence of congestive heart failure 3. Atherosclerosis
[2019-12-01] MEDS ORDERED: cefTRIAXone\\ROCEPHIN 1 GM VIAL ONE (18:44)
[2019-12-01] MEDS ORDERED: Nitroglycerin 0.4 MG TAB (25 Tab Bottle) PO PRN (19:25)
[2019-12-01] MEDS ORDERED: Azithromycin 500 MG VIAL ONE (19:33)
[2019-12-01] MEDS ORDERED: Aspirin 325 MG TAB ONE (19:33)
[2019-12-01] MEDS ORDERED: Dextrose 5% in Water 1,000 ML IV PRN (19:38)
[2019-12-01] MEDS ORDERED: HumaLOG 300 UNITS/3 ML VIAL SC PRN (19:38)
[2019-12-01] MEDS ORDERED: Dextrose 50% Abboject 50 ML SYRINGE SLOW IVP PRN (19:38)
--- NOTE | 2019-12-01 19:38 | PDOC.EVN ---
Event Note - Event Note Event Note: [id number] HP dictated
[2019-12-01 19:56] LABS: Troponin I Less than 0.010 ng/mL (< 0.028)
[2019-12-01] MEDS ORDERED: cefTRIAXone\\ROCEPHIN 1 GM in Sodium Chloride 0.9% 100 ML IVPB SCH (20:00)
[2019-12-01] MEDS ORDERED: Azithromycin 500 MG in Sodium Chloride 0.9% 250 ML 250 ML IVPB SCH (21:00)
[2019-12-01] MEDS ORDERED: Morphine 4 MG/ML VIAL ONE (21:12)
[2019-12-01 22:53] LABS: Troponin I 0.017 ng/mL (< 0.028)
[2019-12-01 23:19] VITALS: BMI 32.1
[2019-12-02] MEDS ORDERED: HumaLOG 300 UNITS/3 ML VIAL SC PRN (00:02)
[2019-12-02] MEDS ORDERED: Apixaban 5 MG TAB PO SCH ×2 (00:15→09:00)
[2019-12-02] MEDS: HYDROcodone/Acetaminophen 5/325 mg Tablet PO PRN ×3 (00:36→11:41)
--- NOTE | 2019-12-02 00:57 | HP ---
CHIEF COMPLAINT: Chest pain and cough. HISTORY OF PRESENT ILLNESS: Ms. Leon is a 74-year-old female with past medical history of cardiac pacemaker/defibrillator, diabetes type 2, hypothyroidism, hyperlipidemia, congestive heart failure, hypertension, chronic back pain, among others, presented to the emergency room with right chest pain, cough productive of greenish sputum that started earlier today. No history of COVID exposure. Defibrillator was placed on the 10 of November because of low EF. The patient had a history of myocardial infarction, congestive heart failure. Workup in the emergency room including initial troponin 0.02. EKG, no acute ischemic changes, BNP 624. Chest x-ray, no acute finding. COVID swab was done in the emergency room. Started on IV antibiotics. The patient also was given aspirin. The patient is being admitted to the hospital for further management. PAST MEDICAL HISTORY: 1. Congestive heart failure. 2. Hypertension. 3. Hyperlipidemia. 4. Hypothyroidism. 5. Diabetes mellitus, type 2. 6. Paroxysmal atrial fibrillation. 7. Cervical radiculopathy. PAST SURGICAL HISTORY: 1. Pacemaker/defibrillator that has been placed in 2019. 2. Appendectomy. 3. Bilateral knee surgery. 4. Cervical surgery. 5. Hysterectomy, partial. SOCIAL HISTORY: Denies smoking, alcohol drinking, or drug abuse. FAMILY HISTORY: Reviewed and noncontributory. HOME MEDICATIONS: Please see home medication reconciliation form for updated medications. ALLERGIES: ALLERGIC TO PENICILLIN. REVIEW OF SYSTEMS: Review of 14 systems negative except what is mentioned in history of present illness. PHYSICAL EXAMINATION: GENERAL: The patient is awake, alert, in moderate distress. VITAL SIGNS: Blood pressure 150/90, pulse is 87, respiratory rate is 20, oxygen saturation is 94% on room air. HEAD: Normocephalic, atraumatic. NECK: Supple. CHEST: Fair bilateral air entry. HEART: Distant heart sounds. ABDOMEN: Soft. Bowel sounds present. NEUROLOGIC: Awake, alert, moving extremities. PSYCHIATRIC: Unable to assess. EXTREMITIES: No clubbing, no cyanosis. GENITOURINARY: No suprapubic tenderness. No flank tenderness. ASSESSMENT: 1. Chest pain, rule out acute coronary syndrome. 2. Pneumonia?? 3. Suspected COVID-19 infection. 4. Congestive heart failure, chronic. 5. Pacemaker/defibrillator. 6. Diabetes mellitus, type 2. 7. Hypertension. 8. Hypothyroidism. 9. Hyperlipidemia. 10. Chronic back pain. PLAN: 1. Admit. 2. Tele monitoring. 3. Aspirin. 4. Serial troponins. 5. Continue with antibiotics for now. 6. COVID-19 swab was done in the emergency room. 7. Isolation precautions. 8. Reconcile home medications. 9. DVT prophylaxis as appropriate. 10. Expected length of stay, 1 midnight if patient is stable and further workup negative. Job ID: [id number]
[2019-12-02] MEDS ORDERED: Levothyroxine Sodium 25 MCG TAB PO SCH (06:00)
[2019-12-02] MEDS ORDERED: Carvedilol 6.25 MG TAB PO SCH (08:00)
[2019-12-02] MEDS ORDERED: Aspirin 325 mg Enteric Coated Tablet PO SCH (09:00)
[2019-12-02] MEDS ORDERED: Potassium Chloride 10 MEQ TAB PO SCH (09:00)
[2019-12-02] MEDS ORDERED: Furosemide 20 MG TAB PO SCH (09:00)
[2019-12-02 12:32] VITALS: BP 144/93; TEMP 98.3
[2019-12-02 12:55] LABS: SARS-CoV-2 MS2 Positive; SARS-CoV-2 N Gene Negative; SARS-CoV-2 S Gene Negative; SARS-CoV-2 orf1ab Negative
--- NOTE | 2019-12-04 09:12 | DIS ---
DATE OF ADMISSION: 12/01/2019 DATE OF DISCHARGE: 12/02/2019 HOSPITAL COURSE: Ms. Leon is a 74-year-old female with medical history of CHF, paroxysmal atrial fibrillation, who presented with right back pain that worsened with inspiration. Imaging studies and cardiac workup were negative for pneumonia or cardiac etiology, and she was diagnosed with musculoskeletal pain. She improved the day following admission with Tylenol and was discharged on ibuprofen and proton pump inhibitor for a week, pending followup appointment with her primary care physician. PHYSICAL EXAMINATION: VITAL SIGNS: Blood pressure 144/93, temperature 98.3 Fahrenheit, pulse 88, respiratory rate 20, and oxygen saturation 93% on room air. GENERAL: Lying comfortably in bed, in no apparent distress. HEENT: Normocephalic, atraumatic. NECK: No lymphadenopathy. CHEST: Clear to auscultation bilaterally. No wheezing, rales, or rhonchi. Palpation of the right upper back elicited [id number] tenderness. CARDIAC: Regular rate and rhythm. No murmurs, gallops, or rubs. ABDOMEN: Soft, nontender, and nondistended. PSYCHIATRIC: Proper mood and affect. Alert and oriented x3. EXTREMITIES: No edema. MEDICATION LIST: New medications, pantoprazole and ibuprofen for a week. Continued medications: 1. Levothyroxine. 2. Lasix. 3. Metformin. 4. Apixaban. 5. Potassium. 6. Amlodipine. 7. Entresto. 8. Coreg. Job ID: [id number]
--- NOTE | 2019-12-10 13:01 | EKG ---
Test Reason : Blood Pressure : / mmHG Vent. Rate : 085 BPM Atrial Rate : 088 BPM P-R Int : 000 ms QRS Dur : 086 ms QT Int : 332 ms P-R-T Axes : 000 -67 011 degrees QTc Int : 395 ms Normal sinus rhythm Left axis deviation Low voltage QRS Cannot rule out Anterior infarct , age undetermined Abnormal ECG Confirmed by MARIJA CONTEH DO ([id number]), editorial writer TEOFILO BRUCE ([id number]) on 12/10/2019 1:00:51 PM Referred By: Confirmed By:MARIJA CONTEH DO
== END 2019-12-02 15:15 | disposition home or self-care (01) ==
LOC: ERS 14:12 → 2SW 19:13
PROVIDERS: ADMIT Internal Medicine; ATTEND Internal Medicine
DX: R07.89 Other chest pain (principal); E11.9 Type 2 diabetes mellitus without complications; E03.9 Hypothyroidism, unspecified; I11.0 Hypertensive heart disease with heart failure; I50.9 Heart failure, unspecified; E78.5 Hyperlipidemia, unspecified; G89.29 Other chronic pain; M54.9 Dorsalgia, unspecified; I25.2 Old myocardial infarction; I48.0 Paroxysmal atrial fibrillation; R05 Cough; Z20.828 Contact with and (suspected) exposure to other viral communicable diseases; Z79.01 Long term (current) use of anticoagulants; Z79.84 Long term (current) use of oral hypoglycemic drugs; Z79.899 Other long term (current) drug therapy; Z88.0 Allergy status to penicillin; Z91.012 Allergy to eggs; Z95.810 Presence of automatic (implantable) cardiac defibrillator
CPT/HCPCS: 71045; 80053; 82550; 82962 ×2; 83690; 83880; 84484 ×2; 85025; 87040; 93005; 94760 ×2; 96365; 96366; 96367; 96375; 99285; G0378 ×3; U0003; 36415; 36416; 87635; J0456; J0696; J2270

== ENCOUNTER 2020-02-10 07:27 | Outpatient (CLI) | payer MEDICARE, OTHER ==
[2020-02-11 14:04] LABS: SARS-CoV-2 MS2 Positive; SARS-CoV-2 N Gene Negative; SARS-CoV-2 S Gene Negative; SARS-CoV-2 by NAA Not Detected (NotDetected); SARS-CoV-2 orf1ab Negative
== END 2020-02-10 07:28 | disposition home or self-care (01) ==
LOC: LABBT 07:27
PROVIDERS: ATTEND Obstetrics & Gynecology
DX: N81.11 Cystocele, midline (principal); Z20.828 Contact with and (suspected) exposure to other viral communicable diseases
CPT/HCPCS: 87635; U0003

== ENCOUNTER 2020-02-15 09:50 | Day surgery (SDC) | payer MEDICARE, OTHER ==
[2020-02-10 14:17] LABS: #Eosinphils 0.1 thou/uL (0.0-0.7); #Lymphocytes 0.9 thou/uL (1.20-3.40); #Monocytes 0.4 thou/uL (0.11-0.59); #Neutrophils 5.2 thou/uL (1.40-6.50); %Basophils 0.4 % (0.0-1.0); %Eosinophils 1.4 % (0.0-10.0); %Lymphocytes 13.4 % (21.0-51.0); %Monocytes 5.9 % (0.0-10.0); Hemoglobin 12.2 g/dL (12.0-16.0); Mean Corpuscular HGB CONC 31.7 g/dL (32.0-36.0); Mean Corpuscular Hemoglobin 28.9 pg (27.0-31.0); Mean Platelet Volume 8.2 fL (7.4-10.4); Platelet Count 254 thou/uL (130-400); RBC Distribution Width 13.5 % (11.5-14.5); Red Blood Cell (RBC) Count 4.22 mill/uL (4.20-5.40); White Blood Cell (WBC) Count 6.5 thou/uL (4.8-10.8)
[2020-02-13 12:40] VITALS: BMI 30.4
--- NOTE | 2020-02-15 09:50 | HP ---
REASON FOR ADMISSION: Symptomatic cystocele amenable to pessary. SCHEDULED PROCEDURE: Anterior repair . HISTORY OF PRESENT ILLNESS: Ms. Leon is a 74-year-old 5, para 4, x4, status post hysterectomy, who was referred to me by Eusebio Atwood for symptomatic bladder prolapse. Efforts in the office to place pessary were unsuccessful and we will proceed with anterior repair and perineorrhaphy. UNIT ASSISTANT HISTORY: As noted. No history of STDs. Size 5 and 6 ring with support fell out and the patient did not tolerate well. PAST MEDICAL HISTORY: Significant for type 2 diabetes, hypothyroidism, history of atrial fibrillation, hypertensive disorder, and implanted cardiac defibrillator. PAST SURGICAL HISTORY: Hysterectomy and orthopedic total knee replacement. ALLERGIES: PENICILLIN. NO ALLERGIES TO CEPHALOSPORINS. MEDICATIONS: 1. Atorvastatin. 2. Carvedilol. 3. Digoxin. 4. Eliquis. The patient has been off for 5 days. 5. Entresto. 6. Furosemide. 7. Synthroid. 8. Lisinopril. SOCIAL HISTORY: The patient is a smoker. Denies alcohol or IV drug abuse. FAMILY HISTORY: Noncontributory. REVIEW OF SYSTEMS: Noncontributory. PHYSICAL EXAMINATION: GENERAL: White female. VITAL SIGNS: 5 feet tall, weight 164, BMI 32, blood pressure 130/80, pulse 89, and respirations 18. HEENT: Within normal limits. LUNGS: Clear to auscultation bilaterally. HEART: Regular rhythm. ABDOMEN: Soft and nontender. : Vulva without lesions. Vagina, the patient has fourth degree cystocele without significant rectocele and has reasonable apical support with the apex at introitus -3 to 4. No masses were noted. EXTREMITIES: No clubbing, cyanosis, or edema. IMPRESSION: Cystocele, un-amenable to pessary therapy in a patient with multiple medical complications. PLAN: We will proceed with anterior repair. The patient has obtained risks and benefits of procedure including bleeding, infection, injury to the bladder, incontinence, and recurrence of cystocele. We will administer appropriate antibiotic and DVT prophylaxis. Job ID: [id number]
[2020-02-15] MEDS ORDERED: Ondansetron PF 4 MG/2 ML Vial ONE (10:46)
[2020-02-15] MEDS ORDERED: PROPOFOL 200 MG/20 ML VIAL ONE (10:46)
[2020-02-15 11:03] LABS: Anion Gap 11 mmol/L (10-20); BUN (Urea Nitrogen) 18 mg/dL (9.8-20.1); Calc. Creatinine Clearance 66 mL/min (70-130); Calcium 9.2 mg/dL (7.8-10.44); Carbon Dioxide 32 mmol/L (23-31); Chloride 101 mmol/L (98-107); Estimated GFR-MDRD 68; Glucose 117 mg/dL (83-110); Potassium 3.9 mmol/L (3.5-5.1); Sodium 140 mmol/L (136-145)
[2020-02-15] MEDS ORDERED: Lidocaine 1% w/Epinephrine 1:100K 20 ML VIAL ONE (11:47)
[2020-02-15] MEDS ORDERED: Fentanyl 100 MCG/2 ML VIAL ONE ×2 (11:50→13:31)
[2020-02-15] MEDS ORDERED: Midazolam HCl 2 mg/2 ml Vial ONE (11:57)
[2020-02-15] MEDS ORDERED: Ketamine 50 MG/ML (10ML VIAL) ONE (11:58)
[2020-02-15] MEDS ORDERED: Lidocaine 1% (PF) 30 ML VIAL ONE (12:30)
[2020-02-15] MEDS ORDERED: Zolpidem Tartrate 5 MG TAB PO PRN (13:12)
[2020-02-15] MEDS ORDERED: Ondansetron PF 4 MG/2 ML Vial IVP PRN (13:12)
[2020-02-15] MEDS ORDERED: Bisacodyl 10 MG SUPP PR PRN (13:12)
[2020-02-15] MEDS ORDERED: HYDROcodone/Acetaminophen 10/325 mg Tablet PO PRN (13:12)
[2020-02-15] MEDS ORDERED: HYDROcodone/Acetaminophen 5/325 mg Tablet PO PRN (13:12)
[2020-02-15] MEDS ORDERED: Simethicone Chewable 80 MG TAB PO PRN (13:12)
[2020-02-15] MEDS ORDERED: diphenhydrAMINE 25 MG CAP PO PRN (13:12)
[2020-02-15] MEDS ORDERED: traMADol HCl 50 MG TAB PO PRN (13:12)
[2020-02-15] MEDS ORDERED: Acetaminophen 325 MG TAB PO PRN (13:12)
[2020-02-15] MEDS ORDERED: Promethazine HCl 25 MG/ML VIAL SLOW IVP PRN (13:27)
[2020-02-15] MEDS ORDERED: Promethazine HCl 25 MG/ML VIAL IM PRN (13:27)
[2020-02-15] MEDS ORDERED: Ondansetron HCl/PF 4 MG/2 ML Vial IVP PRN (13:27)
[2020-02-15] MEDS ORDERED: Promethazine HCl 25 MG/ML VIAL ONE (13:48)
[2020-02-15] MEDS: Carvedilol 25 MG TAB PO SCH (17:40)
[2020-02-15] MEDS: Furosemide 20 MG TAB PO SCH (22:39)
[2020-02-16] MEDS ORDERED: Levothyroxine Sodium 25 MCG TAB PO SCH (06:00)
[2020-02-16 06:34] LABS: Hemoglobin 11.1 g/dL (12.0-16.0); Mean Corpuscular HGB CONC 31.7 g/dL (32.0-36.0); Mean Corpuscular Hemoglobin 29.5 pg (27.0-31.0); Mean Corpuscular Volume 93.2 fL (78.0-98.0); Mean Platelet Volume 7.7 fL (7.4-10.4); Platelet Count 209 thou/uL (130-400); RBC Distribution Width 13.5 % (11.5-14.5); Red Blood Cell (RBC) Count 3.75 mill/uL (4.20-5.40); White Blood Cell (WBC) Count 8.9 thou/uL (4.8-10.8)
--- NOTE | 2020-02-16 08:09 | OP ---
DATE OF PROCEDURE: 02/15/2020 PREOPERATIVE DIAGNOSIS: 4th degree cystocele, unamenable to pessary. POSTOPERATIVE DIAGNOSIS: 4th degree cystocele, unamenable to pessary. PROCEDURES: Anterior repair, perineorrhaphy, and cystourethroscopy. DIRECTOR PROSPECT: Melissa Perez PA-C ANESTHESIA: Laryngeal mask airway. ANESTHESIOLOGISTS: Garcia Corral CRNA and Isatu Bynum MD ESTIMATED BLOOD LOSS: Less than 50 cc. COMPLICATIONS: None. DRAINS: Houser to gravity. FINDINGS: 1. 4th degree cystocele, reduced. 2. Perineal body restored. 3. Normal-appearing bladder with ureteral efflux from bilateral ureteral orifices and no evidence of bladder injury post anterior repair. DISPOSITION: Recovery room in good condition, vag pack in. DESCRIPTION OF PROCEDURE: The patient was taken to the operating room. She underwent anesthetic and was prepped and draped in dorsal lithotomy position. Bladder was drained with a Houser catheter placed. UVJ was easily palpated with the Houser and balloon. Bladder was grasped in the midline at its protruding aspect. The patient was noted to still have good apical support. It was grasped in the midline with 2 Allis's and injected with lidocaine without epinephrine. 15 blade was used to incise the mucosa in the midline and dissection was carried out lateral to the vesicovaginal fascia along the 4th degree cystocele. After this was done, 2-0 Vicryl sutures on a CT-2 needle were placed laterally plicating the vesicovaginal fascia over the cystocele which was reduced using the blunt end of a [place] forceps. This was done in a serial manner from the level of the mid urethra to the apex of the vagina completely reducing the 4th degree cystocele. Excess vaginal mucosa was trimmed off on both sides. No evidence of buttonholing was noted on exam and the fascia was closed using a running locking 0 Vicryl suture. Good hemostasis was noted. The perineal body was noted to be very lax and was a major contributing factor to the patient's inability to keep her pessary inside the vagina. It was grasped on each side with Allis clamps and a Y-shaped incision excising excess mucosa and perineal scar tissue was excised. The puborectalis was grasped on each side and dissected back free and then plicated in the midline using [id number] of 2-0 Vicryl suture x3. Good reapproximation and reconstruction of the perineal body were noted and the vaginal mucosa over the area was closed using a 2-0 Vicryl suture running locking. After this was completed, Houser catheter was removed. Cystoscopy was performed. No evidence of injury to the bladder was noted. Urethra appeared intact without injury and the reduced rectocele was visible. Ureteral efflux of urine was noted bilaterally. Cystoscope was removed. Houser catheter replaced. Moistened Kerlix had already been placed in the vagina as a vag pack. The patient was awakened, LMA removed and taken to recovery room in good condition. We will restart Eliquis tomorrow morning and anticipate discharge late a.m. on the next day. Job ID: [id number]
--- NOTE | 2020-02-16 08:41 | DIS ---
DATE OF ADMISSION: 02/15/2020 DATE OF DISCHARGE: 02/16/2020 SUMMARY OF HOSPITAL COURSE: The patient underwent anterior repair, perineorrhaphy, and cystourethroscopy on 02/14. She had her pack and Houser removed this morning at 0600 hours. No blood was noted on the pack. PHYSICAL EXAMINATION: VITAL SIGNS: Temperature 98.5, pulse 81, respirations 16, and blood pressure 129/77. HEENT: Within normal limits. LUNGS: Clear to auscultation bilaterally. HEART: Regular rate and rhythm. ABDOMEN: Soft and nontender. No rebound. No guarding. : Perineum is dry and intact. EXTREMITIES: No clubbing, cyanosis, or edema. LABORATORY DATA: Reveals hematocrit that went from 38% to 35%. IMPRESSION: The patient is doing well this morning. Await voiding and with void, we will discharge home. The patient will use [id number] pain medications and has scheduled followup at [facility] [place] [facility]. Job ID: [id number]
[2020-02-16] MEDS ORDERED: Potassium Chloride 10 MEQ TAB PO SCH (09:00)
[2020-02-16] MEDS: Furosemide 20 MG TAB PO SCH (11:49)
[2020-02-16] MEDS: Apixaban 5 MG TAB PO SCH ×2 (11:55→12:36)
[2020-02-16] MEDS: Carvedilol 25 MG TAB PO SCH (12:35)
[2020-02-16 12:41] VITALS: TEMP 98.3
[2020-02-16 13:56] VITALS: BP 130/78
== END 2020-02-16 13:55 | disposition home or self-care (01) ==
LOC: SDC 09:50 → 3SE 14:24 → SDC 02-16 13:55
PROVIDERS: ATTEND Obstetrics & Gynecology
PROC: 0JQC0ZZ Repair Pelvic Region Subcutaneous Tissue and Fascia, Open Approach (ICD-10-PCS; principal; 2020-02-15)
DX: N81.11 Cystocele, midline (principal); E03.9 Hypothyroidism, unspecified; E11.9 Type 2 diabetes mellitus without complications; F17.200 Nicotine dependence, unspecified, uncomplicated; I10 Essential (primary) hypertension; Z79.01 Long term (current) use of anticoagulants; Z79.899 Other long term (current) drug therapy; Z88.0 Allergy status to penicillin; Z95.810 Presence of automatic (implantable) cardiac defibrillator; Z91.012 Allergy to eggs
CPT/HCPCS: 36415; 80048; 85025; 85027; 86850; 86900; 86901; 93005; 93010; J0690; J2001; J2250; J2405; J2550; J2704; J3010

== ENCOUNTER 2024-03-24 08:35 | Day surgery (SDC) | payer MEDICARE, OTHER ==
[2024-03-24] MEDS ORDERED: PROPOFOL 20 ML ONE (09:56)
[2024-03-24] MEDS ORDERED: Glycopyrrolate 0.2 MG/ML 5 ML SYRINGE ONE (10:05)
[2024-03-24] MEDS ORDERED: Lidocaine 1% PF 5 ML VIAL ONE (10:05)
== END 2024-03-24 11:15 | disposition home or self-care (01) ==
LOC: SDC 08:35
PROVIDERS: ATTEND Internal Medicine Gastroenterology
PROC: 0DJ08ZZ Inspection of Upper Intestinal Tract, Via Natural or Artificial Opening Endoscopic (ICD-10-PCS; principal; 2024-03-24)
PROC: 0DBK8ZZ Excision of Ascending Colon, Via Natural or Artificial Opening Endoscopic (ICD-10-PCS; 2024-03-24)
PROC: 0DBN8ZZ Excision of Sigmoid Colon, Via Natural or Artificial Opening Endoscopic (ICD-10-PCS; 2024-03-24)
DX: D12.2 Benign neoplasm of ascending colon (principal); D12.5 Benign neoplasm of sigmoid colon; K57.30 Diverticulosis of large intestine without perforation or abscess without bleeding; K64.8 Other hemorrhoids; D64.9 Anemia, unspecified; J44.9 Chronic obstructive pulmonary disease, unspecified; I11.0 Hypertensive heart disease with heart failure; I50.9 Heart failure, unspecified; E78.00 Pure hypercholesterolemia, unspecified; I48.91 Unspecified atrial fibrillation; K21.9 Gastro-esophageal reflux disease without esophagitis; F32.A Depression, unspecified; Z87.891 Personal history of nicotine dependence; Z79.01 Long term (current) use of anticoagulants; Z79.84 Long term (current) use of oral hypoglycemic drugs; Z79.899 Other long term (current) drug therapy; Z88.0 Allergy status to penicillin; Z91.012 Allergy to eggs
CPT/HCPCS: 43235; 45385; J2704; 88305